=== PATIENT | male | born 1965 | race African-American/Black ===

== ENCOUNTER 2019-09-08 18:47 | Inpatient (IN) | payer MEDICAID ==
[~2019-09-08] VITALS: Ht 182.9 cm; Wt 107.0 kg
[2019-09-08] MEDS ORDERED: SODIUM CHLORIDE 0.9% 1,000 ML IV ONE (19:27)
[2019-09-08] MEDS ORDERED: HYDRALAZINE 20MG/ML VIAL IV ONE (19:45)
[2019-09-08 20:17] LABS: MEAN CORPUSCULAR HEMOGLOBIN 30.1 pg (28.0-32.0); MEAN CORPUSCULAR VOLUME 89.1 fL (80.0-94.0); MEAN PLATELET VOLUME 8.4 fl (7.4-10.4); PLATELET 287 x1000/uL (130-400); RED CELL DISTRIBUTION WIDTH 19.2 % (11.6-14.6)
[2019-09-08 20:18] LABS: CHLORIDE 116 mEq/L (98-107)
[2019-09-08 20:22] LABS: ETHANOL BLOOD < 10 mg/dL
[2019-09-08 20:28] LABS: HEMATOCRIT. 20.5 % (42.0-52.0); HEMOGLOBIN. 6.9 g/dL (14.0-18.0)
[2019-09-08 20:30] LABS: INR 1.2; PARTIAL THROMBOPLASTIN TIME 35.3 sec (23.4-31.0); PROTHROMBIN TIME 12.4 sec (9.6-11.0)
[2019-09-08] MEDS ORDERED: LEVETIRACETAM 500MG PREMIX 100 ML IV ONE (20:45)
[2019-09-08] MEDS ORDERED: NICARDIPINE 100 MG in SODIUM CHLORIDE 0.9% 60 ML IV STA (20:57)
[2019-09-08 20:59] LABS: CLARITY URINE CLEAR (CLEAR); COLOR URINE YELLOW (YELLOW); KETONES URINE NEGATIVE (NEGATIVE); LEUKOCYTE ESTERASE URINE NEGATIVE (NEGATIVE); NITRITE URINE NEGATIVE (NEGATIVE); OCCULT BLOOD URINE 2+ (NEGATIVE); PROTEIN URINE 2+ (NEGATIVE); SPECIFIC GRAVITY URINE 1.009 (1.005-1.030)
[2019-09-08] MEDS ORDERED: DEXAMETHASONE 10 MG/ML VIAL IV ONE (21:00)
[2019-09-08] MEDS ORDERED: MANNITOL 12.5G (25%) VIAL 50ML IV ONE (21:00)
[2019-09-08] MEDS ORDERED: FUROSEMIDE 40MG/4ML VIAL IVP ONE (21:00)
[2019-09-08 21:06] LABS: *AMPHETAMINES SCREEN URINE NEGATIVE (NEGATIVE); *BARBITURATES SCREEN URINE NEGATIVE (NEGATIVE); *COCAINE SCREEN URINE NEGATIVE (NEGATIVE)
[2019-09-08 21:06] LABS: PLATELET ESTIMATE NORMAL
[2019-09-08 21:07] LABS: *BENZODIAZEPINES SCREEN URINE NEGATIVE (NEGATIVE); METHADONE URINE SCREEN NEGATIVE (NEGATIVE); OPIATES URINE SCREEN PRESUMTIVE POSITIVE (NEGATIVE); PHENCYCLIDINE URINE SCREEN NEGATIVE (NEGATIVE)
[2019-09-08 21:08] LABS: CANNABINOID URINE SCREEN NEGATIVE (NEGATIVE)
[2019-09-08] MEDS ORDERED: AZITHROMYCIN 500 MG in DEXT 5% WATER 250 ML IV ONE (21:15)
[2019-09-08] MEDS ORDERED: CEFTRIAXONE 1 G PREMIX 50 ML IV ONE (21:15)
[2019-09-08] MEDS ORDERED: MANNITOL 12.5G (25%) VIAL 50ML IV NR (21:43)
[2019-09-08] MEDS ORDERED: BACITRACIN 15GM TUBE TOP ONE (22:02)
[2019-09-08] MEDS ORDERED: THROMBIN (BOVINE) 5000 UNITS/VIAL TOP ONE (22:03)
[2019-09-08] MEDS ORDERED: NORMAL SALINE 0.9% 10 ML SYR ONE (22:03)
[2019-09-08] MEDS ORDERED: BACITRACIN 50,000 UNITS/VIAL ONE (22:04)
[2019-09-08] MEDS ORDERED: LIDOCAINE HCL/EPINEPHRINE 1%-EPI 1:100,000 20 ML VIAL ONE (22:04)
[2019-09-08] MEDS ORDERED: PROPOFOL 200MG/20ML VIAL IV ONE ×2 (22:24→22:57)
[2019-09-08] MEDS ORDERED: FENTANYL CITRATE/PF 50MCG/ML 2ML VIAL ONE (22:24)
[2019-09-08] MEDS ORDERED: MIDAZOLAM HCL 2 MG/2 ML VIAL ONE (22:24)
[2019-09-08] MEDS ORDERED: DEXAMETHASONE 4MG/ML 1ML VIAL ONE (22:24)
[2019-09-08] MEDS ORDERED: SUCCINYLCHOLINE CHLORIDE 200MG/10ML IV ONE (22:24)
[2019-09-08] MEDS ORDERED: CEFAZOLIN SODIUM 1000MG/VIAL ONE (22:24)
[2019-09-08] MEDS ORDERED: NEOSTIGMINE METHYLSULFATE 1MG/ML 10 ML VIAL ONE (22:24)
[2019-09-08] MEDS ORDERED: SODIUM CHLORIDE 0.9% 10ML VIAL ONE (22:24)
[2019-09-08] MEDS ORDERED: GLYCOPYRROLATE 0.2 MG/ML 2ML VIAL ONE (22:24)
[2019-09-08] MEDS ORDERED: ROCURONIUM BROMIDE 10MG/ML VIAL 5ML IV ONE ×2 (22:24→23:01)
[2019-09-08] MEDS ORDERED: EPHEDRINE SULFATE 50MG/ML VIAL ONE (22:24)
[2019-09-08] MEDS ORDERED: ONDANSETRON HCL 4MG/2ML INJ ONE (22:25)
[2019-09-08] MEDS ORDERED: PHENYLEPHRINE HCL 10 MG/ML 1ML (IV VIAL) IV ONE (22:25)
[2019-09-08] MEDS ORDERED: METOCLOPRAMIDE HCL 10MG/2ML VIAL ONE (22:25)
[2019-09-08] MEDS ORDERED: LEVETIRACETAM 500MG PREMIX 100 ML IV NR (22:30)
[2019-09-08] MEDS ORDERED: NICARDIPINE 100 MG in SODIUM CHLORIDE 0.9% 60 ML IV PRN (22:30)
[2019-09-08] MEDS ORDERED: HYDROMORPHONE HCL/PF 2MG/ML CPJ IV PRN (23:30)
[2019-09-08] MEDS ORDERED: ONDANSETRON HCL 4MG/2ML INJ IV PRN (23:30)
[2019-09-08] MEDS ORDERED: SODIUM CHLORIDE 0.9% 1,000 ML IV NR (23:30)
[2019-09-09] VITALS (135 sets, daily range): BP systolic 95–150; BP diastolic 41–79
[2019-09-09 00:19] LABS: BG BASE EXCESS -4.9 mmol/L (-2.0-2.0); BG DEOXYHEMOGLOBIN 0.9 % (0.0-5.0); BG FRACTION INSPIRED OXYGEN 60; BG HCO3 ACT 21.6 mmol/L (22.0-26.0); BG METHEMOGLOBIN 0.4 % (0.0-1.5); BG OXYGEN SATURATION 99.1 % (92.0-98.5); BG OXYHEMOGLOBIN 98.7 % (94.0-97.0); BG PCO2 46.5 mmHg (35.0-45.0); BG PH 7.285 (7.350-7.450); BG PO2 267.4 mmHg (75.0-100.0); BG SAMPLE SITE A-LINE; BG TIDAL VOLUME(mL) 600 mL; BG TOTAL HEMOGLOBIN 9.9 g/dL (12.0-18.0); BG VENT MODE VENT - A/C; BG VENT RATE 14 set
[2019-09-09] MEDS ORDERED: LABETALOL 5MG/ML SYR 20 MG/4 ML SYRINGE IV NR (00:45)
[2019-09-09] MEDS ORDERED: LABETALOL 5MG/ML SYR 20 MG/4 ML SYRINGE IV ONE (00:49)
[2019-09-09] MEDS: MORPHINE SULFATE 2 MG/ML CPJ (NOT FOR IM USE) IV PRN ×2 (01:29→01:56)
[2019-09-09] MEDS ORDERED: PHENYTOIN SODIUM 500 MG in SODIUM CHLORIDE 0.9% 50 ML IV NR ×2 (01:45→05:00)
[2019-09-09] MEDS: DEXT 5%/LACTATED RINGERS 1,000 ML IV SCH ×2 (03:59→14:36)
[2019-09-09] MEDS ORDERED: AZITHROMYCIN 500 MG in DEXT 5% WATER 250 ML IV NR (05:00)
[2019-09-09] MEDS: NICARDIPINE 100 MG in SODIUM CHLORIDE 0.9% 60 ML IV PRN ×3 (05:51→23:22)
[2019-09-09] MEDS: CEFAZOLIN 1000MG PREMIX 50 ML IV SCH ×3 (06:38→21:24)
[2019-09-09 08:39] LABS: BG BASE EXCESS -6.6 mmol/L (-2.0-2.0); BG CARBOXYHEMOGLOBIN 0.2 % (0.5-1.5); BG DEOXYHEMOGLOBIN 0.7 % (0.0-5.0); BG FRACTION INSPIRED OXYGEN 50; BG HCO3 ACT 18.4 mmol/L (22.0-26.0); BG METHEMOGLOBIN 0.5 % (0.0-1.5); BG OXYGEN SATURATION 99.3 % (92.0-98.5); BG OXYHEMOGLOBIN 98.6 % (94.0-97.0); BG PCO2 34.5 mmHg (35.0-45.0); BG PH 7.345 (7.350-7.450); BG SAMPLE SITE A-LINE; BG TIDAL VOLUME(mL) 600 mL; BG TOTAL HEMOGLOBIN 9.6 g/dL (12.0-18.0); BG VENT MODE VENT - A/C; BG VENT RATE 16 set
[2019-09-09] MEDS: PANTOPRAZOLE SODIUM 40 MG/VIAL IV SCH (09:00)
[2019-09-09] MEDS ORDERED: LEVETIRACETAM 1000MG/100ML 100 ML IV SCH (09:00)
[2019-09-09] MEDS ORDERED: LEVETIRACETAM 500MG PREMIX 100 ML IV SCH ×2 (09:00)
[2019-09-09] MEDS: PROPOFOL 10MG/ML 100ML 100 ML IV PRN ×4 (09:13→21:23)
[2019-09-09] MEDS: LEVETIRACETAM 1,000 MG in SODIUM CHLORIDE 0.9% 100 ML IV SCH ×2 (09:13→21:24)
[2019-09-09 09:36] LABS: HEMATOCRIT. 26.7 % (42.0-52.0); MEAN CORPUSCULAR HEMOGLOBIN 28.9 pg (28.0-32.0); MEAN CORPUSCULAR VOLUME 87.1 fL (80.0-94.0); MEAN PLATELET VOLUME 8.9 fl (7.4-10.4); PLATELET 295 x1000/uL (130-400); RED BLOOD CELL COUNT 3.07 mill/uL (4.7-6.1); RED CELL DISTRIBUTION WIDTH 18.1 % (11.6-14.6)
[2019-09-09 09:46] LABS: HEMOGLOBIN. 8.9 g/dL (14.0-18.0)
[2019-09-09 10:29] LABS: PLATELET ESTIMATE NORMAL
[2019-09-09] MEDS: METRONIDAZOLE 500 MG PREMIX 100 ML IV SCH ×2 (10:50→17:32)
[2019-09-09] MEDS: FENTANYL CITRATE/PF 1,000 MCG in SODIUM CHLORIDE 0.9% 80 ML IV PRN ×2 (11:39→17:31)
[2019-09-09] MEDS ORDERED: POTASSIUM CHLORIDE INJ 40 MEQ in DEXT 5% WATER 250 ML IV SCH (12:00)
[2019-09-09] MEDS ORDERED: IPRATROPIUM/ALBUTEROL 0.5-3(2.5)MG/3ML NEB HHN PRN (14:30)
[2019-09-09] MEDS: PHENYTOIN SODIUM 100MG/2ML VIAL IV SCH ×2 (14:36→21:24)
[2019-09-09] MEDS: IPRATROPIUM/ALBUTEROL 0.5-3(2.5)MG/3ML NEB HHN SCH (20:10)
[2019-09-10] VITALS (158 sets, daily range): BP systolic 81–159; BP diastolic 42–71
[2019-09-10] MEDS: IPRATROPIUM/ALBUTEROL 0.5-3(2.5)MG/3ML NEB HHN SCH ×4 (00:30→21:00)
[2019-09-10] MEDS: FENTANYL CITRATE/PF 1,000 MCG in SODIUM CHLORIDE 0.9% 80 ML IV PRN ×3 (00:46→17:59)
[2019-09-10] MEDS: METRONIDAZOLE 500 MG PREMIX 100 ML IV SCH ×3 (01:22→17:59)
[2019-09-10] MEDS: PROPOFOL 10MG/ML 100ML 100 ML IV PRN ×5 (03:04→21:50)
[2019-09-10] MEDS: PHENYTOIN SODIUM 100MG/2ML VIAL IV SCH ×3 (05:09→21:18)
[2019-09-10 05:58] LABS: CREATINE KINASE MB FRACTION 1.3 ng/mL (0.5-3.6)
[2019-09-10 09:13] LABS: HEMOGLOBIN. 8.9 g/dL (14.0-18.0); MEAN CORPUSCULAR HEMOGLOBIN 29.4 pg (28.0-32.0); MEAN PLATELET VOLUME 9.1 fl (7.4-10.4); PLATELET 293 x1000/uL (130-400); RED BLOOD CELL COUNT 3.03 mill/uL (4.7-6.1); RED CELL DISTRIBUTION WIDTH 18.3 % (11.6-14.6)
[2019-09-10] MEDS: LEVETIRACETAM 1,000 MG in SODIUM CHLORIDE 0.9% 100 ML IV SCH ×2 (09:24→21:46)
[2019-09-10] MEDS: CEFEPIME 1,000 MG in DEXTROSE 5% WATER 50 ML IV SCH ×2 (09:24→20:26)
[2019-09-10] MEDS: PANTOPRAZOLE SODIUM 40 MG/VIAL IV SCH (09:25)
[2019-09-10 09:58] LABS: BG BASE EXCESS -7.7 mmol/L (-2.0-2.0); BG CARBOXYHEMOGLOBIN 0.6 % (0.5-1.5); BG DEOXYHEMOGLOBIN 1.2 % (0.0-5.0); BG FRACTION INSPIRED OXYGEN 40; BG HCO3 ACT 17.5 mmol/L (22.0-26.0); BG METHEMOGLOBIN 0.6 % (0.0-1.5); BG OXYGEN SATURATION 98.8 % (92.0-98.5); BG OXYHEMOGLOBIN 97.6 % (94.0-97.0); BG PCO2 34.4 mmHg (35.0-45.0); BG PH 7.325 (7.350-7.450); BG PO2 165.3 mmHg (75.0-100.0); BG SAMPLE SITE RIGHT RADIAL; BG TIDAL VOLUME(mL) 600 mL; BG TOTAL HEMOGLOBIN 8.4 g/dL (12.0-18.0); BG VENT MODE VENT - A/C; BG VENT RATE 16 set
[2019-09-10] MEDS: NICARDIPINE 100 MG in SODIUM CHLORIDE 0.9% 60 ML IV PRN ×2 (10:30→18:39)
[2019-09-10 10:43] LABS: NUCLEATED RED BLOOD CELLS 1 /100 WBC; PLATELET ESTIMATE NORMAL
[2019-09-10] MEDS ORDERED: SODIUM POLYSTYRENE SULFONATE 15 G/60 ML BOT PO NR (12:00)
[2019-09-10] MEDS ORDERED: LIDOCAINE HCL 1% 20ML VIAL (Pyxis) INJ ONE (12:55)
[2019-09-10] MEDS: DEXAMETHASONE 4MG/ML 1ML VIAL IV SCH ×3 (13:02→23:15)
[2019-09-10] MEDS: MORPHINE SULFATE 4 MG/ML CPJ (NOT FOR IM USE) IV PRN (13:02)
[2019-09-10] MEDS: SODIUM BICARBONATE 100 MEQ in SODIUM CHLORIDE 0.45% 1,000 ML IV SCH (13:03)
[2019-09-10 13:30] LABS: CREATINE KINASE 182 IU/L (39-308)
[2019-09-11] VITALS (101 sets, daily range): BP systolic 86–176; BP diastolic 42–83
[2019-09-11] MEDS: METRONIDAZOLE 500 MG PREMIX 100 ML IV SCH ×3 (01:39→18:13)
[2019-09-11] MEDS: NICARDIPINE 100 MG in SODIUM CHLORIDE 0.9% 60 ML IV PRN ×4 (01:40→23:21)
[2019-09-11] MEDS: PROPOFOL 10MG/ML 100ML 100 ML IV PRN ×2 (03:08→06:45)
[2019-09-11] MEDS: DEXAMETHASONE 4MG/ML 1ML VIAL IV SCH ×2 (05:00→11:52)
[2019-09-11] MEDS: FENTANYL CITRATE/PF 1,000 MCG in SODIUM CHLORIDE 0.9% 80 ML IV PRN (05:00)
[2019-09-11] MEDS: PHENYTOIN SODIUM 100MG/2ML VIAL IV SCH ×3 (05:00→21:14)
[2019-09-11 05:37] LABS: HEMATOCRIT. 24.4 % (42.0-52.0); MEAN CORPUSCULAR HEMOGLOBIN 28.8 pg (28.0-32.0); MEAN PLATELET VOLUME 8.6 fl (7.4-10.4); PLATELET 257 x1000/uL (130-400); RED BLOOD CELL COUNT 2.77 mill/uL (4.7-6.1); RED CELL DISTRIBUTION WIDTH 17.8 % (11.6-14.6)
[2019-09-11 07:47] LABS: NUCLEATED RED BLOOD CELLS 1 /100 WBC
[2019-09-11 07:48] LABS: PLATELET ESTIMATE NORMAL
[2019-09-11] MEDS: LEVETIRACETAM 1,000 MG in SODIUM CHLORIDE 0.9% 100 ML IV SCH ×2 (08:40→23:28)
[2019-09-11] MEDS: CEFEPIME 1,000 MG in DEXTROSE 5% WATER 50 ML IV SCH ×2 (08:50→20:33)
[2019-09-11] MEDS: PANTOPRAZOLE SODIUM 40 MG/VIAL IV SCH (08:55)
[2019-09-11] MEDS: IPRATROPIUM/ALBUTEROL 0.5-3(2.5)MG/3ML NEB HHN SCH ×3 (09:10→20:07)
[2019-09-11 09:42] LABS: BG BASE EXCESS -8.4 mmol/L (-2.0-2.0); BG DEOXYHEMOGLOBIN 1.4 % (0.0-5.0); BG FRACTION INSPIRED OXYGEN 40; BG HCO3 ACT 16.6 mmol/L (22.0-26.0); BG METHEMOGLOBIN 0.3 % (0.0-1.5); BG OXYGEN SATURATION 98.6 % (92.0-98.5); BG OXYHEMOGLOBIN 98.3 % (94.0-97.0); BG PCO2 31.8 mmHg (35.0-45.0); BG PH 7.335 (7.350-7.450); BG PO2 135.4 mmHg (75.0-100.0); BG SAMPLE SITE A-LINE; BG TIDAL VOLUME(mL) 600 mL; BG TOTAL HEMOGLOBIN 8.2 g/dL (12.0-18.0); BG VENT MODE VENT - A/C; BG VENT RATE 16 set
[2019-09-11] MEDS: SODIUM BICARBONATE 100 MEQ in SODIUM CHLORIDE 0.45% 1,000 ML IV SCH ×2 (10:33→23:28)
[2019-09-11] MEDS ORDERED: HYDRALAZINE HCL 100MG TABLET PO NR (11:45)
[2019-09-11] MEDS: MORPHINE SULFATE 4 MG/ML CPJ (NOT FOR IM USE) IV PRN ×4 (11:53→22:20)
[2019-09-11] MEDS: AMLODIPINE 10MG TABLET PO SCH (11:54)
[2019-09-11 12:24] LABS: BG CARBOXYHEMOGLOBIN 0.5 % (0.5-1.5); BG DEOXYHEMOGLOBIN 2.5 % (0.0-5.0); BG FRACTION INSPIRED OXYGEN 40; BG METHEMOGLOBIN 0.4 % (0.0-1.5); BG OXYGEN SATURATION 97.5 % (92.0-98.5); BG OXYHEMOGLOBIN 96.6 % (94.0-97.0); BG PH 7.341 (7.350-7.450); BG PO2 103.1 mmHg (75.0-100.0); BG PRESSURE SUPPORT 8; BG SAMPLE SITE A-LINE; BG TOTAL HEMOGLOBIN 8.6 g/dL (12.0-18.0); BG VENT MODE VENT - CPAP
[2019-09-11] MEDS: HYDRALAZINE HCL 100MG TABLET PO SCH (21:15)
[2019-09-12] VITALS (168 sets, daily range): BP systolic 112–168; BP diastolic 40–86
[2019-09-12] MEDS: METRONIDAZOLE 500 MG PREMIX 100 ML IV SCH ×3 (01:03→17:34)
[2019-09-12] MEDS: MORPHINE SULFATE 4 MG/ML CPJ (NOT FOR IM USE) IV PRN ×2 (01:10→05:46)
[2019-09-12] MEDS: IPRATROPIUM/ALBUTEROL 0.5-3(2.5)MG/3ML NEB HHN SCH ×2 (02:20→20:39)
[2019-09-12 05:35] LABS: HEMATOCRIT. 22.7 % (42.0-52.0); HEMOGLOBIN. 7.6 g/dL (14.0-18.0); MEAN CORPUSCULAR HEMOGLOBIN 29.4 pg (28.0-32.0); MEAN CORPUSCULAR VOLUME 87.4 fL (80.0-94.0); MEAN PLATELET VOLUME 8.7 fl (7.4-10.4); PLATELET 231 x1000/uL (130-400); RED BLOOD CELL COUNT 2.59 mill/uL (4.7-6.1); RED CELL DISTRIBUTION WIDTH 16.9 % (11.6-14.6)
[2019-09-12] MEDS: PHENYTOIN SODIUM 100MG/2ML VIAL IV SCH ×3 (05:46→22:18)
[2019-09-12] MEDS: NICARDIPINE 100 MG in SODIUM CHLORIDE 0.9% 60 ML IV PRN ×2 (05:46→14:39)
[2019-09-12] MEDS: DEXAMETHASONE 4MG/ML 1ML VIAL IV SCH ×4 (07:07→23:06)
[2019-09-12] MEDS: CEFEPIME 1,000 MG in DEXTROSE 5% WATER 50 ML IV SCH ×2 (09:00→20:39)
[2019-09-12] MEDS: PANTOPRAZOLE SODIUM 40 MG/VIAL IV SCH (09:02)
[2019-09-12] MEDS: AMLODIPINE 10MG TABLET PO SCH (09:02)
[2019-09-12] MEDS: HYDRALAZINE HCL 100MG TABLET PO SCH ×2 (09:02→20:40)
[2019-09-12] MEDS: LEVETIRACETAM 1,000 MG in SODIUM CHLORIDE 0.9% 100 ML IV SCH ×2 (09:33→21:30)
[2019-09-12 09:35] LABS: INR 1.2
[2019-09-12] MEDS ORDERED: VECURONIUM BROMIDE 10 MG/VIAL IV ONE (10:02)
[2019-09-12] MEDS ORDERED: ETOMIDATE 2MG/ML 10ML VIAL IV ONE (10:02)
[2019-09-12 10:46] LABS: BG BASE EXCESS -9.6 mmol/L (-2.0-2.0); BG CARBOXYHEMOGLOBIN 0.3 % (0.5-1.5); BG DEOXYHEMOGLOBIN 0.8 % (0.0-5.0); BG FRACTION INSPIRED OXYGEN 60; BG HCO3 ACT 17.6 mmol/L (22.0-26.0); BG METHEMOGLOBIN 0.4 % (0.0-1.5); BG OXYGEN SATURATION 99.2 % (92.0-98.5); BG OXYHEMOGLOBIN 98.5 % (94.0-97.0); BG PCO2 44.6 mmHg (35.0-45.0); BG PH 7.215 (7.350-7.450); BG PO2 249.7 mmHg (75.0-100.0); BG SAMPLE SITE A-LINE; BG TIDAL VOLUME(mL) 500 mL; BG TOTAL HEMOGLOBIN 8.9 g/dL (12.0-18.0); BG VENT MODE VENT - A/C; BG VENT RATE 16 set
[2019-09-12] MEDS: PROPOFOL 10MG/ML 100ML 100 ML IV PRN ×3 (12:51→23:06)
[2019-09-12 13:09] LABS: PLATELET ESTIMATE NORMAL
[2019-09-12] MEDS: SODIUM BICARBONATE 100 MEQ in SODIUM CHLORIDE 0.45% 1,000 ML IV SCH (20:55)
[2019-09-13] VITALS (95 sets, daily range): BP systolic 115–163; BP diastolic 41–78
[2019-09-13] MEDS: METRONIDAZOLE 500 MG PREMIX 100 ML IV SCH ×3 (01:21→17:43)
[2019-09-13] MEDS: IPRATROPIUM/ALBUTEROL 0.5-3(2.5)MG/3ML NEB HHN SCH ×5 (03:25→20:59)
[2019-09-13] MEDS: NICARDIPINE 100 MG in SODIUM CHLORIDE 0.9% 60 ML IV PRN ×2 (04:42→16:02)
[2019-09-13 05:14] LABS: HEMATOCRIT. 23.1 % (42.0-52.0); HEMOGLOBIN. 7.7 g/dL (14.0-18.0); MEAN CORPUSCULAR HEMOGLOBIN 29.1 pg (28.0-32.0); MEAN CORPUSCULAR VOLUME 87.3 fL (80.0-94.0); MEAN PLATELET VOLUME 8.7 fl (7.4-10.4); PLATELET 242 x1000/uL (130-400); RED BLOOD CELL COUNT 2.65 mill/uL (4.7-6.1); RED CELL DISTRIBUTION WIDTH 16.4 % (11.6-14.6)
[2019-09-13] MEDS: PHENYTOIN SODIUM 100MG/2ML VIAL IV SCH ×3 (06:06→22:03)
[2019-09-13] MEDS: DEXAMETHASONE 4MG/ML 1ML VIAL IV SCH (06:06)
[2019-09-13] MEDS: LEVETIRACETAM 1,000 MG in SODIUM CHLORIDE 0.9% 100 ML IV SCH ×2 (08:19→21:37)
[2019-09-13] MEDS: CEFEPIME 1,000 MG in DEXTROSE 5% WATER 50 ML IV SCH ×2 (08:48→21:31)
[2019-09-13] MEDS: AMLODIPINE 10MG TABLET PO SCH (08:49)
[2019-09-13] MEDS: HYDRALAZINE HCL 100MG TABLET PO SCH ×3 (08:49→22:19)
[2019-09-13] MEDS: PANTOPRAZOLE SODIUM 40 MG/VIAL IV SCH (08:49)
[2019-09-13] MEDS: PROPOFOL 10MG/ML 100ML 100 ML IV PRN (08:55)
[2019-09-13 10:09] LABS: BG BASE EXCESS -5.7 mmol/L (-2.0-2.0); BG CARBOXYHEMOGLOBIN 0.2 % (0.5-1.5); BG DEOXYHEMOGLOBIN 1.1 % (0.0-5.0); BG FRACTION INSPIRED OXYGEN 40; BG HCO3 ACT 18.4 mmol/L (22.0-26.0); BG METHEMOGLOBIN 0.3 % (0.0-1.5); BG OXYGEN SATURATION 98.9 % (92.0-98.5); BG OXYHEMOGLOBIN 98.4 % (94.0-97.0); BG PCO2 30.2 mmHg (35.0-45.0); BG PH 7.402 (7.350-7.450); BG PO2 184.2 mmHg (75.0-100.0); BG SAMPLE SITE RIGHT RADIAL; BG TIDAL VOLUME(mL) 500 mL; BG TOTAL HEMOGLOBIN 7.8 g/dL (12.0-18.0); BG VENT MODE VENT - A/C; BG VENT RATE 20 set
[2019-09-13] MEDS: CITRIC ACID/SODIUM CITRATE SOLN 30ML UDC PO SCH ×3 (10:38→17:43)
[2019-09-13 13:10] LABS: NUCLEATED RED BLOOD CELLS 1 /100 WBC; PLATELET ESTIMATE NORMAL
[2019-09-13] MEDS: CLONIDINE 0.1MG TABLET PO SCH ×2 (13:35→22:18)
[2019-09-13] MEDS: SODIUM BICARBONATE 100 MEQ in SODIUM CHLORIDE 0.45% 1,000 ML IV SCH (16:19)
[2019-09-13] MEDS ORDERED: LORAZEPAM 2MG/ML CPJ IV PRN (19:30)
[2019-09-14] VITALS (87 sets, daily range): BP systolic 118–149; BP diastolic 41–65
[2019-09-14] MEDS: NICARDIPINE 100 MG in SODIUM CHLORIDE 0.9% 60 ML IV PRN ×3 (00:26→18:08)
[2019-09-14] MEDS: METRONIDAZOLE 500 MG PREMIX 100 ML IV SCH (01:02)
[2019-09-14] MEDS: IPRATROPIUM/ALBUTEROL 0.5-3(2.5)MG/3ML NEB HHN SCH ×4 (01:28→19:40)
[2019-09-14 03:42] LABS: PHOSPHORUS 5.6 mg/dL (2.5-4.9)
[2019-09-14 03:54] LABS: HEMATOCRIT. 21.1 % (42.0-52.0); MEAN CORPUSCULAR HEMOGLOBIN 28.8 pg (28.0-32.0); MEAN PLATELET VOLUME 8.8 fl (7.4-10.4); PLATELET 207 x1000/uL (130-400); RED BLOOD CELL COUNT 2.43 mill/uL (4.7-6.1); RED CELL DISTRIBUTION WIDTH 16.2 % (11.6-14.6)
[2019-09-14] MEDS: HYDRALAZINE HCL 100MG TABLET PO SCH ×3 (05:32→21:05)
[2019-09-14] MEDS: CLONIDINE 0.1MG TABLET PO SCH ×3 (05:32→21:05)
[2019-09-14] MEDS ORDERED: BACITRACIN 15GM TUBE TOP ONE (06:43)
[2019-09-14] MEDS ORDERED: THROMBIN (BOVINE) 5000 UNITS/VIAL TOP ONE ×2 (06:43→06:44)
[2019-09-14] MEDS ORDERED: NORMAL SALINE 0.9% 10 ML SYR ONE (06:43)
[2019-09-14] MEDS ORDERED: BACITRACIN 50,000 UNITS/VIAL ONE (06:44)
[2019-09-14] MEDS ORDERED: LIDOCAINE HCL/EPINEPHRINE 1%-EPI 1:100,000 20 ML VIAL ONE (06:44)
[2019-09-14 07:11] LABS: PLATELET ESTIMATE NORMAL
[2019-09-14] MEDS: PHENYTOIN SODIUM 100MG/2ML VIAL IV SCH ×3 (07:25→21:05)
[2019-09-14] MEDS ORDERED: VECURONIUM BROMIDE 10 MG/VIAL IV ONE (08:22)
[2019-09-14] MEDS ORDERED: METOPROLOL TARTRATE 5MG/5ML VIAL IV ONE (08:23)
[2019-09-14] MEDS ORDERED: HYDRALAZINE 20MG/ML VIAL ONE (08:48)
[2019-09-14] MEDS: CITRIC ACID/SODIUM CITRATE SOLN 30ML UDC PO SCH ×3 (09:00→16:46)
[2019-09-14] MEDS ORDERED: NICARDIPINE 40MG/200ML PREMIX 200 ML IV ONE (09:06)
[2019-09-14] MEDS: CEFEPIME 1,000 MG in DEXTROSE 5% WATER 50 ML IV SCH ×2 (10:36→20:49)
[2019-09-14] MEDS: PANTOPRAZOLE SODIUM 40 MG/VIAL IV SCH (10:36)
[2019-09-14] MEDS: LEVETIRACETAM 1,000 MG in SODIUM CHLORIDE 0.9% 100 ML IV SCH ×2 (10:36→21:32)
[2019-09-14] MEDS: DEXTROSE 5% WATER 1,000 ML IV SCH (10:37)
[2019-09-14] MEDS: PROPOFOL 10MG/ML 100ML 100 ML IV PRN ×3 (10:39→23:57)
[2019-09-14] MEDS: AMLODIPINE 10MG TABLET PO SCH (12:26)
[2019-09-14] MEDS: MORPHINE SULFATE 4 MG/ML CPJ (NOT FOR IM USE) IV PRN ×4 (12:27→23:52)
[2019-09-14 14:12] LABS: BG BASE EXCESS -1.9 mmol/L (-2.0-2.0); BG CARBOXYHEMOGLOBIN 1.1 % (0.5-1.5); BG DEOXYHEMOGLOBIN 2.2 % (0.0-5.0); BG FRACTION INSPIRED OXYGEN 40; BG HCO3 ACT 22.7 mmol/L (22.0-26.0); BG METHEMOGLOBIN 0.3 % (0.0-1.5); BG OXYGEN SATURATION 97.8 % (92.0-98.5); BG OXYHEMOGLOBIN 96.4 % (94.0-97.0); BG PCO2 37.6 mmHg (35.0-45.0); BG PH 7.398 (7.350-7.450); BG PO2 134.1 mmHg (75.0-100.0); BG SAMPLE SITE RIGHT RADIAL; BG TIDAL VOLUME(mL) 500 mL; BG TOTAL HEMOGLOBIN 7.8 g/dL (12.0-18.0); BG VENT MODE VENT - A/C; BG VENT RATE 18 set
[2019-09-14 14:57] LABS: INR 1.2
[2019-09-14 15:01] LABS: HEMATOCRIT. 24.1 % (42.0-52.0); MEAN CORPUSCULAR HEMOGLOBIN 29.3 pg (28.0-32.0); MEAN CORPUSCULAR VOLUME 88.1 fL (80.0-94.0); MEAN PLATELET VOLUME 8.7 fl (7.4-10.4); PLATELET 209 x1000/uL (130-400); RED BLOOD CELL COUNT 2.74 mill/uL (4.7-6.1); RED CELL DISTRIBUTION WIDTH 15.7 % (11.6-14.6); TOTAL IRON BINDING CAPACITY 128 ug/dL (250-450)
[2019-09-14 18:14] LABS: NUCLEATED RED BLOOD CELLS 4 /100 WBC; PLATELET ESTIMATE NORMAL
[2019-09-15] VITALS (91 sets, daily range): BP systolic 109–150; BP diastolic 42–67
[2019-09-15] MEDS: NICARDIPINE 100 MG in SODIUM CHLORIDE 0.9% 60 ML IV PRN ×4 (01:21→15:39)
[2019-09-15] MEDS: IPRATROPIUM/ALBUTEROL 0.5-3(2.5)MG/3ML NEB HHN SCH ×4 (01:50→21:09)
[2019-09-15] MEDS: DEXTROSE 5% WATER 1,000 ML IV SCH ×2 (03:51→17:35)
[2019-09-15] MEDS: PROPOFOL 10MG/ML 100ML 100 ML IV PRN ×4 (04:43→19:33)
[2019-09-15] MEDS: MORPHINE SULFATE 4 MG/ML CPJ (NOT FOR IM USE) IV PRN (04:57)
[2019-09-15 05:08] LABS: HEMOGLOBIN. 7.9 g/dL (14.0-18.0); MEAN CORPUSCULAR HEMOGLOBIN 28.8 pg (28.0-32.0); MEAN CORPUSCULAR VOLUME 87.9 fL (80.0-94.0); MEAN PLATELET VOLUME 8.8 fl (7.4-10.4); PLATELET 201 x1000/uL (130-400); RED BLOOD CELL COUNT 2.73 mill/uL (4.7-6.1); RED CELL DISTRIBUTION WIDTH 15.8 % (11.6-14.6)
[2019-09-15] MEDS: PHENYTOIN SODIUM 100MG/2ML VIAL IV SCH ×3 (05:41→21:05)
[2019-09-15] MEDS: CLONIDINE 0.1MG TABLET PO SCH (05:41)
[2019-09-15] MEDS: HYDRALAZINE HCL 100MG TABLET PO SCH ×3 (05:41→21:05)
[2019-09-15] MEDS: PANTOPRAZOLE SODIUM 40 MG/VIAL IV SCH (08:11)
[2019-09-15] MEDS: CITRIC ACID/SODIUM CITRATE SOLN 30ML UDC PO SCH ×3 (08:11→17:35)
[2019-09-15] MEDS: AMLODIPINE 10MG TABLET PO SCH (08:12)
[2019-09-15] MEDS: LEVETIRACETAM 1,000 MG in SODIUM CHLORIDE 0.9% 100 ML IV SCH ×2 (08:12→21:05)
[2019-09-15 09:34] LABS: PLATELET ESTIMATE NORMAL
[2019-09-15 10:29] LABS: BG BASE EXCESS -5.1 mmol/L (-2.0-2.0); BG CARBOXYHEMOGLOBIN 0.4 % (0.5-1.5); BG FRACTION INSPIRED OXYGEN 40; BG HCO3 ACT 18.8 mmol/L (22.0-26.0); BG METHEMOGLOBIN 0.6 % (0.0-1.5); BG PCO2 30.4 mmHg (35.0-45.0); BG SAMPLE SITE A-LINE; BG TIDAL VOLUME(mL) 500 mL; BG TOTAL HEMOGLOBIN 8.2 g/dL (12.0-18.0); BG VENT MODE VENT - A/C; BG VENT RATE 18 set
[2019-09-15] MEDS: CLONIDINE 0.2MG TABLET PO SCH ×2 (14:09→21:05)
[2019-09-15] MEDS: NAFCILLIN SODIUM 2,000 MG in SODIUM CHLORIDE 0.9% 100 ML IV SCH ×3 (15:48→23:11)
[2019-09-16] VITALS (95 sets, daily range): BP systolic 85–156; BP diastolic 39–69
[2019-09-16] MEDS: IPRATROPIUM/ALBUTEROL 0.5-3(2.5)MG/3ML NEB HHN SCH ×4 (01:28→21:07)
[2019-09-16] MEDS: NICARDIPINE 100 MG in SODIUM CHLORIDE 0.9% 60 ML IV PRN (01:28)
[2019-09-16] MEDS: PROPOFOL 10MG/ML 100ML 100 ML IV PRN ×4 (01:28→19:50)
[2019-09-16] MEDS: NAFCILLIN SODIUM 2,000 MG in SODIUM CHLORIDE 0.9% 100 ML IV SCH ×5 (03:19→19:48)
[2019-09-16] MEDS: CLONIDINE 0.2MG TABLET PO SCH (05:36)
[2019-09-16] MEDS: HYDRALAZINE HCL 100MG TABLET PO SCH ×3 (05:36→21:10)
[2019-09-16] MEDS: PHENYTOIN SODIUM 100MG/2ML VIAL IV SCH ×3 (05:36→21:09)
[2019-09-16 06:37] LABS: HEMATOCRIT. 22.9 % (42.0-52.0); HEMOGLOBIN. 7.5 g/dL (14.0-18.0); MEAN CORPUSCULAR HEMOGLOBIN 28.9 pg (28.0-32.0); MEAN CORPUSCULAR VOLUME 88.8 fL (80.0-94.0); MEAN PLATELET VOLUME 9.3 fl (7.4-10.4); PLATELET 208 x1000/uL (130-400); RED BLOOD CELL COUNT 2.58 mill/uL (4.7-6.1); RED CELL DISTRIBUTION WIDTH 16.3 % (11.6-14.6)
[2019-09-16 09:52] LABS: BG CARBOXYHEMOGLOBIN 0.9 % (0.5-1.5); BG DEOXYHEMOGLOBIN 2.3 % (0.0-5.0); BG FRACTION INSPIRED OXYGEN 35; BG HCO3 ACT 22.9 mmol/L (22.0-26.0); BG METHEMOGLOBIN 0.3 % (0.0-1.5); BG OXYGEN SATURATION 97.7 % (92.0-98.5); BG OXYHEMOGLOBIN 96.5 % (94.0-97.0); BG PH 7.386 (7.350-7.450); BG PO2 108.4 mmHg (75.0-100.0); BG SAMPLE SITE A-LINE; BG TIDAL VOLUME(mL) 500 mL; BG TOTAL HEMOGLOBIN 7.4 g/dL (12.0-18.0); BG VENT MODE VENT - A/C; BG VENT RATE 18 set
[2019-09-16] MEDS: AMLODIPINE 10MG TABLET PO SCH (10:11)
[2019-09-16] MEDS: CITRIC ACID/SODIUM CITRATE SOLN 30ML UDC PO SCH ×3 (10:11→16:39)
[2019-09-16] MEDS: PANTOPRAZOLE SODIUM 40 MG/VIAL IV SCH (10:11)
[2019-09-16] MEDS: LEVETIRACETAM 1,000 MG in SODIUM CHLORIDE 0.9% 100 ML IV SCH ×2 (10:55→21:09)
[2019-09-16] MEDS: DEXTROSE 5% WATER 1,000 ML IV SCH (12:01)
[2019-09-16] MEDS: CLONIDINE 0.3MG TABLET PO SCH ×2 (13:29→21:09)
[2019-09-16 14:08] LABS: NUCLEATED RED BLOOD CELLS 3 /100 WBC
[2019-09-16] MEDS: MORPHINE SULFATE 4 MG/ML CPJ (NOT FOR IM USE) IV PRN (22:55)
[2019-09-17] VITALS (95 sets, daily range): BP systolic 105–140; BP diastolic 39–62
[2019-09-17] MEDS: NAFCILLIN SODIUM 2,000 MG in SODIUM CHLORIDE 0.9% 100 ML IV SCH ×6 (00:13→20:39)
[2019-09-17] MEDS: IPRATROPIUM/ALBUTEROL 0.5-3(2.5)MG/3ML NEB HHN SCH ×4 (01:46→20:22)
[2019-09-17] MEDS: PROPOFOL 10MG/ML 100ML 100 ML IV PRN ×4 (03:15→22:31)
[2019-09-17] MEDS: DEXTROSE 5% WATER 1,000 ML IV SCH ×2 (03:16→22:31)
[2019-09-17] MEDS: PHENYTOIN SODIUM 100MG/2ML VIAL IV SCH ×3 (05:48→22:31)
[2019-09-17] MEDS: HYDRALAZINE HCL 100MG TABLET PO SCH ×3 (05:48→22:59)
[2019-09-17] MEDS: CLONIDINE 0.3MG TABLET PO SCH ×4 (05:48→22:59)
[2019-09-17 05:52] LABS: HEMATOCRIT. 22.9 % (42.0-52.0); HEMOGLOBIN. 7.6 g/dL (14.0-18.0); MEAN CORPUSCULAR HEMOGLOBIN 29.4 pg (28.0-32.0); MEAN CORPUSCULAR VOLUME 88.5 fL (80.0-94.0); MEAN PLATELET VOLUME 8.8 fl (7.4-10.4); PLATELET 214 x1000/uL (130-400); RED BLOOD CELL COUNT 2.59 mill/uL (4.7-6.1); RED CELL DISTRIBUTION WIDTH 16.1 % (11.6-14.6)
[2019-09-17 08:47] LABS: BG BASE EXCESS -2.1 mmol/L (-2.0-2.0); BG CARBOXYHEMOGLOBIN 0.9 % (0.5-1.5); BG DEOXYHEMOGLOBIN 4.2 % (0.0-5.0); BG FRACTION INSPIRED OXYGEN 35; BG HCO3 ACT 23.1 mmol/L (22.0-26.0); BG METHEMOGLOBIN 0.2 % (0.0-1.5); BG OXYGEN SATURATION 95.8 % (92.0-98.5); BG OXYHEMOGLOBIN 94.7 % (94.0-97.0); BG PCO2 41.4 mmHg (35.0-45.0); BG PH 7.364 (7.350-7.450); BG PO2 86.6 mmHg (75.0-100.0); BG SAMPLE SITE A-LINE; BG TIDAL VOLUME(mL) 500 mL; BG TOTAL HEMOGLOBIN 7.4 g/dL (12.0-18.0); BG VENT MODE VENT - A/C; BG VENT RATE 18 set
[2019-09-17] MEDS: AMLODIPINE 10MG TABLET PO SCH (09:27)
[2019-09-17] MEDS: LEVETIRACETAM 1,000 MG in SODIUM CHLORIDE 0.9% 100 ML IV SCH ×2 (09:27→20:39)
[2019-09-17] MEDS: PANTOPRAZOLE SODIUM 40 MG/VIAL IV SCH (09:27)
[2019-09-17 11:07] LABS: NUCLEATED RED BLOOD CELLS 5 /100 WBC; PLATELET ESTIMATE NORMAL
[2019-09-17] MEDS: POLYVINYL ALCOHOL OPHTH DROPS 15ML BOTHEYE SCH ×2 (11:58→17:19)
[2019-09-17] MEDS: MINOXIDIL 2.5MG TABLET PO SCH ×2 (12:01→17:18)
[2019-09-17] MEDS: MORPHINE SULFATE 4 MG/ML CPJ (NOT FOR IM USE) IV PRN ×2 (16:54→18:58)
[2019-09-17] MEDS: NICARDIPINE 100 MG in SODIUM CHLORIDE 0.9% 60 ML IV PRN (17:36)
[2019-09-18] VITALS (94 sets, daily range): BP systolic 80–116; BP diastolic 30–52
[2019-09-18] MEDS: IPRATROPIUM/ALBUTEROL 0.5-3(2.5)MG/3ML NEB HHN SCH ×4 (00:52→20:25)
[2019-09-18] MEDS: NAFCILLIN SODIUM 2,000 MG in SODIUM CHLORIDE 0.9% 100 ML IV SCH ×7 (04:56→20:49)
[2019-09-18 05:36] LABS: HEMATOCRIT. 22.5 % (42.0-52.0); HEMOGLOBIN. 7.5 g/dL (14.0-18.0); MEAN CORPUSCULAR HEMOGLOBIN 29.4 pg (28.0-32.0); MEAN CORPUSCULAR VOLUME 88.4 fL (80.0-94.0); MEAN PLATELET VOLUME 8.8 fl (7.4-10.4); PLATELET 189 x1000/uL (130-400); RED BLOOD CELL COUNT 2.55 mill/uL (4.7-6.1); RED CELL DISTRIBUTION WIDTH 17.1 % (11.6-14.6)
[2019-09-18] MEDS: POLYVINYL ALCOHOL OPHTH DROPS 15ML BOTHEYE SCH ×4 (05:58→17:56)
[2019-09-18] MEDS: HYDRALAZINE HCL 100MG TABLET PO SCH ×3 (05:58→21:32)
[2019-09-18] MEDS: CLONIDINE 0.3MG TABLET PO SCH (06:00)
[2019-09-18] MEDS: PHENYTOIN SODIUM 100MG/2ML VIAL IV SCH ×3 (06:06→22:00)
[2019-09-18] MEDS: PANTOPRAZOLE SODIUM 40 MG/VIAL IV SCH (08:21)
[2019-09-18] MEDS: LEVETIRACETAM 1,000 MG in SODIUM CHLORIDE 0.9% 100 ML IV SCH ×2 (08:21→20:49)
[2019-09-18] MEDS: PROPOFOL 10MG/ML 100ML 100 ML IV PRN (08:23)
[2019-09-18] MEDS: MINOXIDIL 2.5MG TABLET PO SCH ×2 (08:23→10:15)
[2019-09-18] MEDS: AMLODIPINE 10MG TABLET PO SCH (08:25)
[2019-09-18 08:46] LABS: NUCLEATED RED BLOOD CELLS 6 /100 WBC; PLATELET ESTIMATE NORMAL
[2019-09-18 09:44] LABS: BG BASE EXCESS -3.1 mmol/L (-2.0-2.0); BG CARBOXYHEMOGLOBIN 1.5 % (0.5-1.5); BG DEOXYHEMOGLOBIN 2.5 % (0.0-5.0); BG FRACTION INSPIRED OXYGEN 35; BG HCO3 ACT 22.1 mmol/L (22.0-26.0); BG METHEMOGLOBIN 0.5 % (0.0-1.5); BG OXYGEN SATURATION 97.4 % (92.0-98.5); BG OXYHEMOGLOBIN 95.5 % (94.0-97.0); BG PO2 107.2 mmHg (75.0-100.0); BG SAMPLE SITE RIGHT RADIAL; BG TIDAL VOLUME(mL) 500 mL; BG TOTAL HEMOGLOBIN 7.2 g/dL (12.0-18.0); BG VENT MODE VENT - A/C; BG VENT RATE 18 set
[2019-09-18] MEDS: NEOMY SULF/BACITRAC ZN/POLY OINT 28GM TOP SCH ×2 (12:19→20:50)
[2019-09-18] MEDS: CLONIDINE 0.1MG TABLET PO SCH ×2 (14:00→21:33)
[2019-09-18] MEDS: DEXTROSE 5% WATER 1,000 ML IV SCH (14:05)
[2019-09-19] VITALS (95 sets, daily range): BP systolic 82–157; BP diastolic 28–56
[2019-09-19] MEDS: POLYVINYL ALCOHOL OPHTH DROPS 15ML BOTHEYE SCH ×5 (00:25→23:23)
[2019-09-19] MEDS: IPRATROPIUM/ALBUTEROL 0.5-3(2.5)MG/3ML NEB HHN SCH ×3 (00:38→21:13)
[2019-09-19] MEDS ORDERED: NOREPINEPHRINE 4 MG in DEXTROSE 5% WATER 250 ML IV PRN (02:00)
[2019-09-19] MEDS ORDERED: NOREPINEPHRINE 4MG/250ML PMX 250 ML IV PRN (02:00)
[2019-09-19] MEDS: NAFCILLIN SODIUM 2,000 MG in SODIUM CHLORIDE 0.9% 100 ML IV SCH ×8 (04:00→23:23)
[2019-09-19 05:28] LABS: MEAN CORPUSCULAR HEMOGLOBIN 28.8 pg (28.0-32.0); MEAN CORPUSCULAR VOLUME 87.7 fL (80.0-94.0); MEAN PLATELET VOLUME 8.6 fl (7.4-10.4); PLATELET 262 x1000/uL (130-400); RED BLOOD CELL COUNT 2.35 mill/uL (4.7-6.1); RED CELL DISTRIBUTION WIDTH 17.3 % (11.6-14.6)
[2019-09-19 05:44] LABS: HEMATOCRIT. 20.7 % (42.0-52.0); HEMOGLOBIN. 6.8 g/dL (14.0-18.0)
[2019-09-19] MEDS: CLONIDINE 0.1MG TABLET PO SCH (06:00)
[2019-09-19] MEDS: PHENYTOIN SODIUM 100MG/2ML VIAL IV SCH ×3 (06:00→21:07)
[2019-09-19] MEDS: HYDRALAZINE HCL 100MG TABLET PO SCH (06:00)
[2019-09-19] MEDS: MINOXIDIL 2.5MG TABLET PO SCH (08:08)
[2019-09-19] MEDS: LEVETIRACETAM 1,000 MG in SODIUM CHLORIDE 0.9% 100 ML IV SCH ×2 (08:08→20:14)
[2019-09-19] MEDS: PANTOPRAZOLE SODIUM 40 MG/VIAL IV SCH (08:08)
[2019-09-19] MEDS: DEXTROSE 5% WATER 1,000 ML IV SCH (08:08)
[2019-09-19] MEDS: NEOMY SULF/BACITRAC ZN/POLY OINT 28GM TOP SCH ×2 (08:09→20:18)
[2019-09-19 08:14] LABS: BG BASE EXCESS -5.4 mmol/L (-2.0-2.0); BG CARBOXYHEMOGLOBIN 1.5 % (0.5-1.5); BG DEOXYHEMOGLOBIN 5.4 % (0.0-5.0); BG FRACTION INSPIRED OXYGEN 30; BG OXYGEN SATURATION 94.5 % (92.0-98.5); BG OXYHEMOGLOBIN 93.1 % (94.0-97.0); BG PCO2 38.8 mmHg (35.0-45.0); BG PH 7.331 (7.350-7.450); BG PO2 79.3 mmHg (75.0-100.0); BG SAMPLE SITE RIGHT RADIAL; BG TIDAL VOLUME(mL) 500 mL; BG TOTAL HEMOGLOBIN 6.8 g/dL (12.0-18.0); BG VENT MODE VENT - A/C; BG VENT RATE 14 set
[2019-09-19 11:54] LABS: INR 1.3; PARTIAL THROMBOPLASTIN TIME 46.8 sec (23.4-31.0); PROTHROMBIN TIME 13.3 sec (9.6-11.0)
[2019-09-19 12:09] LABS: HEPATITIS B SURFACE AB 4.3 mIU/mL
[2019-09-19] MEDS: METOCLOPRAMIDE HCL 10MG/2ML VIAL IV SCH ×3 (12:18→23:23)
[2019-09-19 12:20] LABS: HEPATITIS B SURFACE ANTIGEN NEGATIVE
[2019-09-19 12:50] LABS: HEPATITIS A AB IGM NEGATIVE (NEGATIVE)
[2019-09-19] MEDS: NOREPINEPHRINE 32 MG in DEXT 5% WATER 468 ML IV PRN (13:54)
[2019-09-19 17:10] LABS: NUCLEATED RED BLOOD CELLS 4 /100 WBC; PLATELET ESTIMATE NORMAL
[2019-09-19 20:41] LABS: HEMATOCRIT 23.9 % (42.0-52.0); HEMOGLOBIN 7.7 g/dL (14.0-18.0)
[2019-09-20] VITALS (99 sets, daily range): BP systolic 81–131; BP diastolic 31–50
[2019-09-20] MEDS: IPRATROPIUM/ALBUTEROL 0.5-3(2.5)MG/3ML NEB HHN SCH ×4 (02:19→20:20)
[2019-09-20] MEDS: NAFCILLIN SODIUM 2,000 MG in SODIUM CHLORIDE 0.9% 100 ML IV SCH ×6 (04:04→23:27)
[2019-09-20 05:19] LABS: HEMATOCRIT. 24.1 % (42.0-52.0); MEAN CORPUSCULAR HEMOGLOBIN 28.9 pg (28.0-32.0); MEAN CORPUSCULAR VOLUME 87.6 fL (80.0-94.0); MEAN PLATELET VOLUME 8.1 fl (7.4-10.4); PLATELET 293 x1000/uL (130-400); RED BLOOD CELL COUNT 2.75 mill/uL (4.7-6.1); RED CELL DISTRIBUTION WIDTH 17.5 % (11.6-14.6)
[2019-09-20] MEDS: POLYVINYL ALCOHOL OPHTH DROPS 15ML BOTHEYE SCH ×3 (05:26→23:27)
[2019-09-20] MEDS: METOCLOPRAMIDE HCL 10MG/2ML VIAL IV SCH ×3 (05:26→23:27)
[2019-09-20] MEDS: PHENYTOIN SODIUM 100MG/2ML VIAL IV SCH ×3 (05:26→21:01)
[2019-09-20] MEDS: DEXTROSE 50% WATER 50ML SYRINGE IV PRN ×4 (05:38→23:28)
[2019-09-20] MEDS: PANTOPRAZOLE SODIUM 40 MG/VIAL IV SCH (08:35)
[2019-09-20] MEDS: NEOMY SULF/BACITRAC ZN/POLY OINT 28GM TOP SCH ×2 (08:36→20:59)
[2019-09-20] MEDS: LEVETIRACETAM 1,000 MG in SODIUM CHLORIDE 0.9% 100 ML IV SCH ×2 (09:48→20:28)
[2019-09-20] MEDS ORDERED: DEXT 5%/LACTATED RINGERS 1,000 ML IV SCH (11:15)
[2019-09-20] MEDS: BLOOD SUGAR DIAGNOSTIC STRIP TEST SCH ×2 (11:47→23:27)
[2019-09-20 14:01] LABS: NUCLEATED RED BLOOD CELLS 3 /100 WBC; PLATELET ESTIMATE NORMAL
[2019-09-21] VITALS (103 sets, daily range): BP systolic 86–160; BP diastolic 30–67
[2019-09-21] MEDS: IPRATROPIUM/ALBUTEROL 0.5-3(2.5)MG/3ML NEB HHN SCH ×4 (01:30→20:34)
[2019-09-21] MEDS: NOREPINEPHRINE 32 MG in DEXT 5% WATER 468 ML IV PRN (01:33)
[2019-09-21] MEDS: NAFCILLIN SODIUM 2,000 MG in SODIUM CHLORIDE 0.9% 100 ML IV SCH ×6 (03:40→23:05)
[2019-09-21 05:46] LABS: HEMATOCRIT. 21.9 % (42.0-52.0); HEMOGLOBIN. 7.1 g/dL (14.0-18.0); MEAN CORPUSCULAR HEMOGLOBIN 28.4 pg (28.0-32.0); MEAN CORPUSCULAR VOLUME 87.4 fL (80.0-94.0); MEAN PLATELET VOLUME 8.2 fl (7.4-10.4); PLATELET 281 x1000/uL (130-400); RED CELL DISTRIBUTION WIDTH 17.4 % (11.6-14.6)
[2019-09-21] MEDS: METOCLOPRAMIDE HCL 10MG/2ML VIAL IV SCH ×4 (06:09→23:04)
[2019-09-21] MEDS: BLOOD SUGAR DIAGNOSTIC STRIP TEST SCH ×4 (06:09→23:04)
[2019-09-21] MEDS: POLYVINYL ALCOHOL OPHTH DROPS 15ML BOTHEYE SCH ×4 (06:09→23:04)
[2019-09-21] MEDS: PHENYTOIN SODIUM 100MG/2ML VIAL IV SCH ×3 (06:09→21:10)
[2019-09-21] MEDS ORDERED: PHENYLEPHRINE 40 MG in DEXT 5% WATER 246 ML IV PRN (08:30)
[2019-09-21] MEDS ORDERED: DEXTROSE 10% WATER 500 ML IV ONE ×2 (08:30)
[2019-09-21] MEDS: NEOMY SULF/BACITRAC ZN/POLY OINT 28GM TOP SCH ×2 (09:00→20:45)
[2019-09-21 09:02] LABS: BG CARBOXYHEMOGLOBIN 0.7 % (0.5-1.5); BG FRACTION INSPIRED OXYGEN 30; BG METHEMOGLOBIN 1.2 % (0.0-1.5); BG OXYGEN SATURATION 82.7 % (92.0-98.5); BG OXYHEMOGLOBIN 81.1 % (94.0-97.0); BG PCO2 42.2 mmHg (35.0-45.0); BG PH 7.294 (7.350-7.450); BG PO2 51.8 mmHg (75.0-100.0); BG SAMPLE SITE RIGHT RADIAL; BG TIDAL VOLUME(mL) 500 mL; BG TOTAL HEMOGLOBIN 7.3 g/dL (12.0-18.0); BG VENT MODE VENT - A/C; BG VENT RATE 14 set
[2019-09-21] MEDS: LEVETIRACETAM 1,000 MG in SODIUM CHLORIDE 0.9% 100 ML IV SCH ×2 (10:48→21:09)
[2019-09-21] MEDS: PANTOPRAZOLE SODIUM 40 MG/VIAL IV SCH ×2 (10:49→20:44)
[2019-09-21] MEDS: METRONIDAZOLE 500 MG PREMIX 100 ML IV SCH ×3 (10:49→21:10)
[2019-09-21 12:21] LABS: NUCLEATED RED BLOOD CELLS 3 /100 WBC
[2019-09-21 12:23] LABS: PLATELET ESTIMATE NORMAL
[2019-09-21 13:23] LABS: BG BASE EXCESS 1.9 mmol/L (-2.0-2.0); BG CARBOXYHEMOGLOBIN 1.7 % (0.5-1.5); BG DEOXYHEMOGLOBIN 2.3 % (0.0-5.0); BG FRACTION INSPIRED OXYGEN 35; BG HCO3 ACT 26.6 mmol/L (22.0-26.0); BG METHEMOGLOBIN 0.5 % (0.0-1.5); BG OXYGEN SATURATION 97.6 % (92.0-98.5); BG OXYHEMOGLOBIN 95.5 % (94.0-97.0); BG PCO2 42.3 mmHg (35.0-45.0); BG PH 7.417 (7.350-7.450); BG PO2 105.5 mmHg (75.0-100.0); BG SAMPLE SITE RIGHT RADIAL; BG TIDAL VOLUME(mL) 500 mL; BG VENT MODE VENT - A/C; BG VENT RATE 18 set
[2019-09-21] MEDS: SUCRALFATE 1 G/10 ML UDC PO SCH ×2 (16:47→20:44)
[2019-09-21] MEDS: DEXT 10% WATER 1,000 ML IV SCH (18:19)
[2019-09-21] MEDS ORDERED: DEXT 10% WATER 1,000 ML IV SCH (20:00)
[2019-09-22] VITALS (97 sets, daily range): BP systolic 90–140; BP diastolic 31–85
[2019-09-22] MEDS: IPRATROPIUM/ALBUTEROL 0.5-3(2.5)MG/3ML NEB HHN SCH ×4 (01:35→21:35)
[2019-09-22] MEDS: NAFCILLIN SODIUM 2,000 MG in SODIUM CHLORIDE 0.9% 100 ML IV SCH ×3 (04:43→11:43)
[2019-09-22] MEDS: METOCLOPRAMIDE HCL 10MG/2ML VIAL IV SCH ×3 (05:12→17:45)
[2019-09-22] MEDS: PHENYTOIN SODIUM 100MG/2ML VIAL IV SCH ×3 (05:12→22:07)
[2019-09-22] MEDS: BLOOD SUGAR DIAGNOSTIC STRIP TEST SCH ×3 (05:13→18:12)
[2019-09-22] MEDS: METRONIDAZOLE 500 MG PREMIX 100 ML IV SCH ×3 (05:13→22:51)
[2019-09-22] MEDS: POLYVINYL ALCOHOL OPHTH DROPS 15ML BOTHEYE SCH ×3 (05:37→17:46)
[2019-09-22] MEDS: SUCRALFATE 1 G/10 ML UDC PO SCH ×4 (05:37→22:07)
[2019-09-22 06:04] LABS: HEMATOCRIT. 23.1 % (42.0-52.0); HEMOGLOBIN. 7.8 g/dL (14.0-18.0); MEAN CORPUSCULAR HEMOGLOBIN 28.8 pg (28.0-32.0); MEAN CORPUSCULAR VOLUME 85.2 fL (80.0-94.0); MEAN PLATELET VOLUME 8.4 fl (7.4-10.4); PLATELET 292 x1000/uL (130-400); RED BLOOD CELL COUNT 2.71 mill/uL (4.7-6.1); RED CELL DISTRIBUTION WIDTH 17.1 % (11.6-14.6)
[2019-09-22 08:08] LABS: BG BASE EXCESS -1.1 mmol/L (-2.0-2.0); BG CARBOXYHEMOGLOBIN 1.8 % (0.5-1.5); BG DEOXYHEMOGLOBIN 3.2 % (0.0-5.0); BG HCO3 ACT 23.6 mmol/L (22.0-26.0); BG METHEMOGLOBIN 0.6 % (0.0-1.5); BG OXYGEN SATURATION 96.7 % (92.0-98.5); BG OXYHEMOGLOBIN 94.4 % (94.0-97.0); BG PCO2 39.3 mmHg (35.0-45.0); BG PH 7.396 (7.350-7.450); BG PO2 95.1 mmHg (75.0-100.0); BG SAMPLE SITE RIGHT RADIAL; BG TIDAL VOLUME(mL) 500 mL; BG TOTAL HEMOGLOBIN 8.3 g/dL (12.0-18.0); BG VENT MODE VENT - A/C; BG VENT RATE 18 set
[2019-09-22] MEDS: PANTOPRAZOLE SODIUM 40 MG/VIAL IV SCH ×2 (08:44→22:08)
[2019-09-22] MEDS: THIAMINE HCL 100MG TABLET NG SCH (08:44)
[2019-09-22] MEDS: FOLIC ACID 1MG TABLET NG SCH (08:44)
[2019-09-22] MEDS: LEVETIRACETAM 1,000 MG in SODIUM CHLORIDE 0.9% 100 ML IV SCH ×2 (08:45→22:07)
[2019-09-22] MEDS: NEOMY SULF/BACITRAC ZN/POLY OINT 28GM TOP SCH ×2 (08:45→22:08)
[2019-09-22] MEDS: NOREPINEPHRINE 32 MG in DEXT 5% WATER 468 ML IV PRN (08:58)
[2019-09-22 09:53] LABS: NUCLEATED RED BLOOD CELLS 18 /100 WBC
[2019-09-22 09:54] LABS: PLATELET ESTIMATE NORMAL
[2019-09-22] MEDS: DEXT 10% WATER 1,000 ML IV SCH (17:47)
[2019-09-23] VITALS (97 sets, daily range): BP systolic 76–140; BP diastolic 32–57
[2019-09-23] MEDS: METOCLOPRAMIDE HCL 10MG/2ML VIAL IV SCH ×4 (00:45→17:57)
[2019-09-23] MEDS: POLYVINYL ALCOHOL OPHTH DROPS 15ML BOTHEYE SCH ×4 (00:46→17:58)
[2019-09-23] MEDS: IPRATROPIUM/ALBUTEROL 0.5-3(2.5)MG/3ML NEB HHN SCH ×5 (01:06→21:00)
[2019-09-23 05:42] LABS: HEMATOCRIT. 22.5 % (42.0-52.0); HEMOGLOBIN. 7.7 g/dL (14.0-18.0); MEAN CORPUSCULAR HEMOGLOBIN 29.3 pg (28.0-32.0); MEAN CORPUSCULAR VOLUME 85.1 fL (80.0-94.0); MEAN PLATELET VOLUME 8.5 fl (7.4-10.4); PLATELET 262 x1000/uL (130-400); RED BLOOD CELL COUNT 2.64 mill/uL (4.7-6.1); RED CELL DISTRIBUTION WIDTH 18.1 % (11.6-14.6)
[2019-09-23] MEDS: SUCRALFATE 1 G/10 ML UDC PO SCH ×4 (05:42→22:38)
[2019-09-23] MEDS: METRONIDAZOLE 500 MG PREMIX 100 ML IV SCH ×3 (05:42→22:39)
[2019-09-23] MEDS: PHENYTOIN SODIUM 100MG/2ML VIAL IV SCH ×3 (05:42→22:38)
[2019-09-23] MEDS: BLOOD SUGAR DIAGNOSTIC STRIP TEST SCH ×4 (06:00→17:58)
[2019-09-23 07:26] LABS: NUCLEATED RED BLOOD CELLS 72 /100 WBC
[2019-09-23 07:27] LABS: PLATELET ESTIMATE NORMAL
[2019-09-23] MEDS: PANTOPRAZOLE SODIUM 40 MG/VIAL IV SCH ×2 (10:51→22:18)
[2019-09-23] MEDS: LEVETIRACETAM 1,000 MG in SODIUM CHLORIDE 0.9% 100 ML IV SCH ×2 (10:52→22:19)
[2019-09-23] MEDS: FOLIC ACID 1MG TABLET NG SCH (10:52)
[2019-09-23] MEDS: THIAMINE HCL 100MG TABLET NG SCH (10:52)
[2019-09-23] MEDS: NEOMY SULF/BACITRAC ZN/POLY OINT 28GM TOP SCH ×2 (11:17→21:00)
[2019-09-23] MEDS: DEXT 10% WATER 1,000 ML IV SCH (17:58)
[2019-09-23] MEDS: MIDODRINE HCL 5MG TABLET PO SCH (18:00)
[2019-09-23 20:12] LABS: PROTHROMBIN TIME 41.1 sec (9.6-11.0)
[2019-09-23 20:38] LABS: INR 4.2
[2019-09-23 21:03] LABS: FOLIC ACID (FOLATE) SERUM 12.9 ng/mL (>5.38)
[2019-09-23] MEDS ORDERED: PHYTONADIONE 10MG/ML AMP SUBCUT NR (23:00)
[2019-09-24] VITALS (89 sets, daily range): BP systolic 90–153; BP diastolic 35–77
[2019-09-24] MEDS: BLOOD SUGAR DIAGNOSTIC STRIP TEST SCH ×4 (00:02→17:03)
[2019-09-24] MEDS: METOCLOPRAMIDE HCL 10MG/2ML VIAL IV SCH ×5 (00:05→23:39)
[2019-09-24] MEDS: POLYVINYL ALCOHOL OPHTH DROPS 15ML BOTHEYE SCH ×3 (00:06→17:26)
[2019-09-24] MEDS: IPRATROPIUM/ALBUTEROL 0.5-3(2.5)MG/3ML NEB HHN SCH ×2 (02:12→09:08)
[2019-09-24] MEDS: PHENYTOIN SODIUM 100MG/2ML VIAL IV SCH ×4 (06:00→21:39)
[2019-09-24] MEDS: METRONIDAZOLE 500 MG PREMIX 100 ML IV SCH ×4 (06:00→21:58)
[2019-09-24] MEDS: SUCRALFATE 1 G/10 ML UDC PO SCH ×4 (06:30→21:32)
[2019-09-24 08:57] LABS: INR 2.2; PROTHROMBIN TIME 22.5 sec (9.6-11.0)
[2019-09-24] MEDS ORDERED: PHYTONADIONE 10MG/ML AMP SUBCUT NR (09:00)
[2019-09-24 09:03] LABS: HEMATOCRIT. 21.7 % (42.0-52.0); HEMOGLOBIN. 7.6 g/dL (14.0-18.0); MEAN CORPUSCULAR HEMOGLOBIN 29.4 pg (28.0-32.0); MEAN CORPUSCULAR VOLUME 84.5 fL (80.0-94.0); MEAN PLATELET VOLUME 8.1 fl (7.4-10.4); PLATELET 195 x1000/uL (130-400); RED BLOOD CELL COUNT 2.57 mill/uL (4.7-6.1); RED CELL DISTRIBUTION WIDTH 18.4 % (11.6-14.6)
[2019-09-24] MEDS: PANTOPRAZOLE SODIUM 40 MG/VIAL IV SCH ×2 (09:47→21:32)
[2019-09-24] MEDS: FOLIC ACID 1MG TABLET NG SCH (09:47)
[2019-09-24] MEDS: MIDODRINE HCL 5MG TABLET PO SCH ×3 (09:47→17:26)
[2019-09-24] MEDS: THIAMINE HCL 100MG TABLET NG SCH (09:47)
[2019-09-24] MEDS: LEVETIRACETAM 1,000 MG in SODIUM CHLORIDE 0.9% 100 ML IV SCH ×2 (09:48→20:39)
[2019-09-24] MEDS: NEOMY SULF/BACITRAC ZN/POLY OINT 28GM TOP SCH ×2 (09:49→21:39)
[2019-09-24 10:44] LABS: NUCLEATED RED BLOOD CELLS 75 /100 WBC
[2019-09-24 10:45] LABS: PLATELET ESTIMATE NORMAL
[2019-09-24] MEDS: DEXT 10% WATER 1,000 ML IV SCH (17:39)
[2019-09-24] MEDS ORDERED: POTASSIUM CHLORIDE 20MEQ/PACKET NG NR (19:30)
[2019-09-24] MEDS: NOREPINEPHRINE 32 MG in DEXT 5% WATER 468 ML IV PRN (20:15)
[2019-09-24 23:09] LABS: HEMOGLOBIN 7.6 g/dL (14.0-18.0)
[2019-09-24 23:20] LABS: INR 1.4; PROTHROMBIN TIME 14.3 sec (9.6-11.0)
[2019-09-25] VITALS (98 sets, daily range): BP systolic 74–224; BP diastolic 32–78
[2019-09-25] MEDS: IPRATROPIUM/ALBUTEROL 0.5-3(2.5)MG/3ML NEB HHN SCH ×4 (01:35→20:15)
[2019-09-25 05:35] LABS: HEMATOCRIT. 23.2 % (42.0-52.0); HEMOGLOBIN. 7.9 g/dL (14.0-18.0); MEAN CORPUSCULAR HEMOGLOBIN 29.4 pg (28.0-32.0); MEAN PLATELET VOLUME 8.2 fl (7.4-10.4); PLATELET 170 x1000/uL (130-400); RED BLOOD CELL COUNT 2.69 mill/uL (4.7-6.1); RED CELL DISTRIBUTION WIDTH 17.9 % (11.6-14.6)
[2019-09-25 05:38] LABS: INR 1.3
[2019-09-25] MEDS: PHENYTOIN SODIUM 100MG/2ML VIAL IV SCH ×3 (05:52→21:01)
[2019-09-25] MEDS: METOCLOPRAMIDE HCL 10MG/2ML VIAL IV SCH ×3 (05:59→17:00)
[2019-09-25] MEDS: BLOOD SUGAR DIAGNOSTIC STRIP TEST SCH ×4 (06:00→17:01)
[2019-09-25] MEDS: POLYVINYL ALCOHOL OPHTH DROPS 15ML BOTHEYE SCH ×4 (06:01→17:01)
[2019-09-25] MEDS: METRONIDAZOLE 500 MG PREMIX 100 ML IV SCH ×3 (06:01→21:01)
[2019-09-25] MEDS: SUCRALFATE 1 G/10 ML UDC PO SCH ×4 (06:32→21:00)
[2019-09-25] MEDS ORDERED: POTASSIUM CHLORIDE 20MEQ/PACKET PO NR (07:00)
[2019-09-25 07:36] LABS: NUCLEATED RED BLOOD CELLS 67 /100 WBC
[2019-09-25 07:44] LABS: PLATELET ESTIMATE NORMAL
[2019-09-25] MEDS: MIDODRINE HCL 5MG TABLET PO SCH ×3 (08:15→17:00)
[2019-09-25] MEDS: FOLIC ACID 1MG TABLET NG SCH (08:16)
[2019-09-25] MEDS: THIAMINE HCL 100MG TABLET NG SCH (08:16)
[2019-09-25] MEDS: FLUDROCORTISONE ACETATE 0.1MG TABLET PO SCH (08:16)
[2019-09-25] MEDS: PANTOPRAZOLE SODIUM 40 MG/VIAL IV SCH ×2 (08:16→21:00)
[2019-09-25] MEDS: NEOMY SULF/BACITRAC ZN/POLY OINT 28GM TOP SCH ×2 (08:17→21:03)
[2019-09-25] MEDS: LEVETIRACETAM 1,000 MG in SODIUM CHLORIDE 0.9% 100 ML IV SCH ×2 (08:43→21:00)
[2019-09-25] MEDS: NAFCILLIN SODIUM 2,000 MG in SODIUM CHLORIDE 0.9% 100 ML IV SCH ×2 (16:54→21:00)
[2019-09-25] MEDS: DEXTROSE 50% WATER 50ML SYRINGE IV PRN ×2 (17:01→22:31)
[2019-09-26] VITALS (89 sets, daily range): BP systolic 76–129; BP diastolic 24–72
[2019-09-26] MEDS: METOCLOPRAMIDE HCL 10MG/2ML VIAL IV SCH ×4 (00:05→17:20)
[2019-09-26] MEDS: NAFCILLIN SODIUM 2,000 MG in SODIUM CHLORIDE 0.9% 100 ML IV SCH ×6 (00:05→20:43)
[2019-09-26] MEDS: BLOOD SUGAR DIAGNOSTIC STRIP TEST SCH ×4 (00:06→17:21)
[2019-09-26] MEDS: POLYVINYL ALCOHOL OPHTH DROPS 15ML BOTHEYE SCH ×4 (00:06→17:21)
[2019-09-26] MEDS: IPRATROPIUM/ALBUTEROL 0.5-3(2.5)MG/3ML NEB HHN SCH ×4 (02:05→20:04)
[2019-09-26] MEDS: DEXTROSE 50% WATER 50ML SYRINGE IV PRN ×2 (02:29→13:23)
[2019-09-26] MEDS: NOREPINEPHRINE 32 MG in DEXT 5% WATER 468 ML IV PRN (05:22)
[2019-09-26] MEDS: PHENYTOIN SODIUM 100MG/2ML VIAL IV SCH ×3 (05:22→21:38)
[2019-09-26 05:52] LABS: PHOSPHORUS 5.1 mg/dL (2.5-4.9)
[2019-09-26 06:03] LABS: MEAN CORPUSCULAR HEMOGLOBIN 29.8 pg (28.0-32.0); MEAN CORPUSCULAR VOLUME 86.1 fL (80.0-94.0); MEAN PLATELET VOLUME 8.5 fl (7.4-10.4); PLATELET 122 x1000/uL (130-400); RED BLOOD CELL COUNT 2.22 mill/uL (4.7-6.1); RED CELL DISTRIBUTION WIDTH 17.7 % (11.6-14.6)
[2019-09-26] MEDS: SUCRALFATE 1 G/10 ML UDC PO SCH ×4 (06:05→21:38)
[2019-09-26 06:44] LABS: HEMATOCRIT. 19.1 % (42.0-52.0); HEMOGLOBIN. 6.6 g/dL (14.0-18.0)
[2019-09-26 08:13] LABS: NUCLEATED RED BLOOD CELLS 49 /100 WBC; PLATELET ESTIMATE SLIGHTLY DECREASED
[2019-09-26] MEDS: THIAMINE HCL 100MG TABLET NG SCH (09:23)
[2019-09-26] MEDS: LEVETIRACETAM 1,000 MG in SODIUM CHLORIDE 0.9% 100 ML IV SCH ×2 (09:23→21:33)
[2019-09-26] MEDS: FLUDROCORTISONE ACETATE 0.1MG TABLET PO SCH (09:23)
[2019-09-26] MEDS: PANTOPRAZOLE SODIUM 40 MG/VIAL IV SCH ×2 (09:23→21:38)
[2019-09-26] MEDS: FOLIC ACID 1MG TABLET NG SCH (09:23)
[2019-09-26] MEDS: NEOMY SULF/BACITRAC ZN/POLY OINT 28GM TOP SCH ×2 (09:24→21:42)
[2019-09-26] MEDS: MIDODRINE HCL 5MG TABLET PO SCH ×3 (09:24→17:20)
[2019-09-26] MEDS ORDERED: BISACODYL 10MG SUPP PR SCH (10:30)
[2019-09-26] MEDS: DEXT 5%/0.9% NACL 1,000 ML IV SCH (12:02)
[2019-09-27] VITALS (99 sets, daily range): BP systolic 78–177; BP diastolic 31–75
[2019-09-27] MEDS: DEXTROSE 50% WATER 50ML SYRINGE IV PRN (00:01)
[2019-09-27] MEDS: BLOOD SUGAR DIAGNOSTIC STRIP TEST SCH ×5 (00:01→23:41)
[2019-09-27] MEDS: METOCLOPRAMIDE HCL 10MG/2ML VIAL IV SCH ×5 (00:22→23:40)
[2019-09-27] MEDS: NAFCILLIN SODIUM 2,000 MG in SODIUM CHLORIDE 0.9% 100 ML IV SCH ×7 (00:22→23:46)
[2019-09-27] MEDS: POLYVINYL ALCOHOL OPHTH DROPS 15ML BOTHEYE SCH ×5 (01:18→23:41)
[2019-09-27] MEDS: IPRATROPIUM/ALBUTEROL 0.5-3(2.5)MG/3ML NEB HHN SCH ×4 (01:58→20:22)
[2019-09-27 05:32] LABS: HEMATOCRIT. 21.4 % (42.0-52.0); HEMOGLOBIN. 7.4 g/dL (14.0-18.0); MEAN CORPUSCULAR HEMOGLOBIN 29.8 pg (28.0-32.0); MEAN CORPUSCULAR VOLUME 86.6 fL (80.0-94.0); MEAN PLATELET VOLUME 8.5 fl (7.4-10.4); PLATELET 125 x1000/uL (130-400); RED BLOOD CELL COUNT 2.47 mill/uL (4.7-6.1); RED CELL DISTRIBUTION WIDTH 17.5 % (11.6-14.6)
[2019-09-27 05:40] LABS: PHOSPHORUS 5.4 mg/dL (2.5-4.9)
[2019-09-27] MEDS: PHENYTOIN SODIUM 100MG/2ML VIAL IV SCH ×3 (06:38→22:10)
[2019-09-27] MEDS: SUCRALFATE 1 G/10 ML UDC PO SCH ×4 (06:39→21:17)
[2019-09-27 07:16] LABS: NUCLEATED RED BLOOD CELLS 30 /100 WBC
[2019-09-27 07:17] LABS: PLATELET ESTIMATE SLIGHTLY DECREASED
[2019-09-27] MEDS: PANTOPRAZOLE SODIUM 40 MG/VIAL IV SCH ×2 (08:21→21:17)
[2019-09-27] MEDS: FOLIC ACID 1MG TABLET NG SCH (08:22)
[2019-09-27] MEDS: THIAMINE HCL 100MG TABLET NG SCH (08:22)
[2019-09-27] MEDS: FLUDROCORTISONE ACETATE 0.1MG TABLET PO SCH (08:22)
[2019-09-27] MEDS: MIDODRINE HCL 5MG TABLET PO SCH ×3 (08:22→16:51)
[2019-09-27 08:29] LABS: BG BASE EXCESS -4.5 mmol/L (-2.0-2.0); BG CARBOXYHEMOGLOBIN 1.6 % (0.5-1.5); BG DEOXYHEMOGLOBIN 3.6 % (0.0-5.0); BG HCO3 ACT 20.5 mmol/L (22.0-26.0); BG METHEMOGLOBIN 0.3 % (0.0-1.5); BG OXYGEN SATURATION 96.3 % (92.0-98.5); BG OXYHEMOGLOBIN 94.5 % (94.0-97.0); BG PCO2 36.9 mmHg (35.0-45.0); BG PH 7.362 (7.350-7.450); BG PO2 88.4 mmHg (75.0-100.0); BG SAMPLE SITE RIGHT RADIAL; BG TIDAL VOLUME(mL) 500 mL; BG TOTAL HEMOGLOBIN 8.1 g/dL (12.0-18.0); BG VENT MODE VENT - A/C; BG VENT RATE 18 set
[2019-09-27] MEDS: LEVETIRACETAM 1,000 MG in SODIUM CHLORIDE 0.9% 100 ML IV SCH ×2 (10:47→21:19)
[2019-09-27] MEDS: NEOMY SULF/BACITRAC ZN/POLY OINT 28GM TOP SCH ×2 (10:48→21:18)
[2019-09-27] MEDS: DEXT 5%/0.9% NACL 1,000 ML IV SCH (12:08)
[2019-09-27] MEDS: NOREPINEPHRINE 32 MG in DEXT 5% WATER 468 ML IV PRN (23:25)
[2019-09-28] VITALS (99 sets, daily range): BP systolic 81–149; BP diastolic 27–117
[2019-09-28] MEDS: IPRATROPIUM/ALBUTEROL 0.5-3(2.5)MG/3ML NEB HHN SCH ×4 (00:26→21:07)
[2019-09-28] MEDS: NAFCILLIN SODIUM 2,000 MG in SODIUM CHLORIDE 0.9% 100 ML IV SCH ×5 (03:34→23:43)
[2019-09-28] MEDS: METOCLOPRAMIDE HCL 10MG/2ML VIAL IV SCH ×4 (05:32→23:36)
[2019-09-28] MEDS: PHENYTOIN SODIUM 100MG/2ML VIAL IV SCH ×3 (05:40→22:23)
[2019-09-28 06:05] LABS: HEMATOCRIT. 24.5 % (42.0-52.0); HEMOGLOBIN. 8.4 g/dL (14.0-18.0); MEAN CORPUSCULAR HEMOGLOBIN 30.4 pg (28.0-32.0); MEAN CORPUSCULAR VOLUME 88.6 fL (80.0-94.0); MEAN PLATELET VOLUME 8.1 fl (7.4-10.4); PLATELET 112 x1000/uL (130-400); RED BLOOD CELL COUNT 2.77 mill/uL (4.7-6.1); RED CELL DISTRIBUTION WIDTH 18.5 % (11.6-14.6)
[2019-09-28] MEDS: SUCRALFATE 1 G/10 ML UDC PO SCH ×4 (06:38→22:25)
[2019-09-28] MEDS: BLOOD SUGAR DIAGNOSTIC STRIP TEST SCH ×3 (06:38→17:35)
[2019-09-28] MEDS: POLYVINYL ALCOHOL OPHTH DROPS 15ML BOTHEYE SCH ×4 (06:39→23:36)
[2019-09-28] MEDS: NEOMY SULF/BACITRAC ZN/POLY OINT 28GM TOP SCH ×2 (09:00→22:25)
[2019-09-28] MEDS: PANTOPRAZOLE SODIUM 40 MG/VIAL IV SCH ×2 (09:00→22:35)
[2019-09-28] MEDS: MIDODRINE HCL 5MG TABLET PO SCH ×3 (09:00→18:16)
[2019-09-28] MEDS: THIAMINE HCL 100MG TABLET NG SCH (09:00)
[2019-09-28] MEDS: FLUDROCORTISONE ACETATE 0.1MG TABLET PO SCH (09:00)
[2019-09-28] MEDS: LEVETIRACETAM 1,000 MG in SODIUM CHLORIDE 0.9% 100 ML IV SCH ×2 (09:05→22:41)
[2019-09-28 11:03] LABS: NUCLEATED RED BLOOD CELLS 38 /100 WBC; PLATELET ESTIMATE DECREASED
[2019-09-28] MEDS ORDERED: SODIUM BICARBONATE 4% (2.4MEQ) 5ML VIAL IV ONE (11:32)
[2019-09-28] MEDS ORDERED: LIDOCAINE HCL 1% 20ML VIAL (Pyxis) INJ ONE (11:32)
[2019-09-28] MEDS ORDERED: DEXTROSE 10% WATER 500 ML IV SCH (13:00)
[2019-09-28] MEDS: DEXTROSE 10% WATER 500 ML IV SCH (13:00)
[2019-09-28 13:14] LABS: INR 1.3; PROTHROMBIN TIME 13.6 sec (9.6-11.0)
[2019-09-28] MEDS: FOLIC ACID 1MG TABLET NG SCH (15:04)
[2019-09-29] VITALS (103 sets, daily range): BP systolic 97–143; BP diastolic 27–53
[2019-09-29] MEDS: BLOOD SUGAR DIAGNOSTIC STRIP TEST SCH ×4 (00:16→18:19)
[2019-09-29] MEDS: IPRATROPIUM/ALBUTEROL 0.5-3(2.5)MG/3ML NEB HHN SCH ×2 (00:17→20:36)
[2019-09-29 03:28] LABS: MEAN CORPUSCULAR HEMOGLOBIN 30.3 pg (28.0-32.0); MEAN PLATELET VOLUME 8.2 fl (7.4-10.4); PLATELET 80 x1000/uL (130-400); RED BLOOD CELL COUNT 2.02 mill/uL (4.7-6.1)
[2019-09-29 03:32] LABS: INR 1.2
[2019-09-29] MEDS: NAFCILLIN SODIUM 2,000 MG in SODIUM CHLORIDE 0.9% 100 ML IV SCH ×2 (03:40→09:59)
[2019-09-29 03:54] LABS: HEMOGLOBIN. 6.1 g/dL (14.0-18.0)
[2019-09-29 03:55] LABS: HEMATOCRIT. 17.4 % (42.0-52.0)
[2019-09-29] MEDS: PHENYTOIN SODIUM 100MG/2ML VIAL IV SCH ×3 (05:53→21:03)
[2019-09-29] MEDS: POLYVINYL ALCOHOL OPHTH DROPS 15ML BOTHEYE SCH ×3 (05:53→18:00)
[2019-09-29] MEDS: SUCRALFATE 1 G/10 ML UDC PO SCH ×4 (06:03→20:42)
[2019-09-29] MEDS: METOCLOPRAMIDE HCL 10MG/2ML VIAL IV SCH ×3 (06:03→18:00)
[2019-09-29] MEDS: NOREPINEPHRINE 32 MG in DEXT 5% WATER 468 ML IV PRN (08:14)
[2019-09-29] MEDS: MIDODRINE HCL 5MG TABLET PO SCH ×3 (09:58→17:00)
[2019-09-29] MEDS: THIAMINE HCL 100MG TABLET NG SCH (09:59)
[2019-09-29] MEDS: FOLIC ACID 1MG TABLET NG SCH (09:59)
[2019-09-29] MEDS: PANTOPRAZOLE SODIUM 40 MG/VIAL IV SCH ×2 (09:59→20:42)
[2019-09-29] MEDS: FLUDROCORTISONE ACETATE 0.1MG TABLET PO SCH (10:09)
[2019-09-29] MEDS: LEVETIRACETAM 1,000 MG in SODIUM CHLORIDE 0.9% 100 ML IV SCH ×2 (10:09→20:42)
[2019-09-29] MEDS: NEOMY SULF/BACITRAC ZN/POLY OINT 28GM TOP SCH ×2 (10:10→20:43)
[2019-09-29 11:36] LABS: NUCLEATED RED BLOOD CELLS 78 /100 WBC
[2019-09-29 11:42] LABS: PLATELET ESTIMATE DECREASED
[2019-09-29] MEDS ORDERED: CEFTRIAXONE 2 G PREMIX 50 ML IV SCH (12:30)
[2019-09-29] MEDS: DEXTROSE 10% WATER 500 ML IV SCH (12:32)
[2019-09-29] MEDS ORDERED: OCTREOTIDE ACETATE 50 MCG/ML 1ML IV NR (14:30)
[2019-09-29] MEDS: CEFTRIAXONE 2 G in DEXTROSE 5% WATER 50 ML IV SCH (14:59)
[2019-09-29] MEDS: METRONIDAZOLE 500 MG PREMIX 100 ML IV SCH ×2 (15:00→21:03)
[2019-09-29] MEDS: OCTREOTIDE 1,000 MCG in SODIUM CHLORIDE 0.9% 98 ML IV SCH (16:24)
[2019-09-29 16:29] LABS: HEMATOCRIT 26.4 % (42.0-52.0); HEMOGLOBIN 9.4 g/dL (14.0-18.0)
[2019-09-29] MEDS: AMOXICILLIN 500 MG CAPSULE NG SCH (20:42)
[2019-09-29] MEDS: CLARITHROMYCIN 500MG TABLET NG SCH (20:42)
[2019-09-30] VITALS (137 sets, daily range): BP systolic 53–144; BP diastolic 24–52
[2019-09-30] MEDS: POLYVINYL ALCOHOL OPHTH DROPS 15ML BOTHEYE SCH ×4 (00:14→18:54)
[2019-09-30] MEDS: METOCLOPRAMIDE HCL 10MG/2ML VIAL IV SCH ×4 (00:14→18:54)
[2019-09-30] MEDS: BLOOD SUGAR DIAGNOSTIC STRIP TEST SCH ×4 (00:14→18:52)
[2019-09-30] MEDS: CEFTRIAXONE 2 G in DEXTROSE 5% WATER 50 ML IV SCH ×2 (05:17→18:53)
[2019-09-30 05:43] LABS: MEAN CORPUSCULAR VOLUME 86.8 fL (80.0-94.0); MEAN PLATELET VOLUME 8.2 fl (7.4-10.4); PLATELET 73 x1000/uL (130-400); RED BLOOD CELL COUNT 2.25 mill/uL (4.7-6.1); RED CELL DISTRIBUTION WIDTH 17.2 % (11.6-14.6)
[2019-09-30 05:49] LABS: HEMATOCRIT. 19.5 % (42.0-52.0)
[2019-09-30] MEDS: SUCRALFATE 1 G/10 ML UDC PO SCH ×4 (06:00→20:15)
[2019-09-30] MEDS: METRONIDAZOLE 500 MG PREMIX 100 ML IV SCH ×3 (06:01→21:24)
[2019-09-30] MEDS: PHENYTOIN SODIUM 100MG/2ML VIAL IV SCH ×3 (06:01→21:23)
[2019-09-30] MEDS: IPRATROPIUM/ALBUTEROL 0.5-3(2.5)MG/3ML NEB HHN SCH ×3 (07:43→20:44)
[2019-09-30] MEDS: LEVETIRACETAM 1,000 MG in SODIUM CHLORIDE 0.9% 100 ML IV SCH ×2 (09:01→20:17)
[2019-09-30] MEDS: AMOXICILLIN 500 MG CAPSULE NG SCH ×2 (09:02→20:15)
[2019-09-30] MEDS: FLUDROCORTISONE ACETATE 0.1MG TABLET PO SCH (09:03)
[2019-09-30] MEDS: MIDODRINE HCL 5MG TABLET PO SCH ×3 (09:03→17:00)
[2019-09-30] MEDS: FOLIC ACID 1MG TABLET NG SCH (09:03)
[2019-09-30] MEDS: PANTOPRAZOLE SODIUM 40 MG/VIAL IV SCH ×2 (09:03→20:13)
[2019-09-30] MEDS: THIAMINE HCL 100MG TABLET NG SCH (09:03)
[2019-09-30] MEDS: CLARITHROMYCIN 500MG TABLET NG SCH ×2 (09:03→20:16)
[2019-09-30] MEDS: NEOMY SULF/BACITRAC ZN/POLY OINT 28GM TOP SCH ×2 (09:04→20:16)
[2019-09-30] MEDS: OCTREOTIDE 1,000 MCG in SODIUM CHLORIDE 0.9% 98 ML IV SCH (10:02)
[2019-09-30] MEDS ORDERED: NOREPINEPHRINE 8 MG in DEXTROSE 5% WATER 250 ML IV PRN (12:00)
[2019-09-30] MEDS ORDERED: PHENYLEPHRINE 50 MG in DEXTROSE 5% WATER 250 ML IV PRN (12:00)
[2019-09-30 12:08] LABS: NUCLEATED RED BLOOD CELLS 36 /100 WBC; PLATELET ESTIMATE DECREASED
[2019-09-30] MEDS ORDERED: NOREPINEPHRINE 8 MG in DEXT 5% WATER 242 ML IV PRN (15:45)
[2019-09-30 18:24] LABS: HEMATOCRIT 22.8 % (42.0-52.0); HEMOGLOBIN 8.3 g/dL (14.0-18.0)
[2019-09-30 23:33] LABS: HEMATOCRIT 21.3 % (42.0-52.0); HEMOGLOBIN 7.9 g/dL (14.0-18.0)
[2019-10-01] VITALS (99 sets, daily range): BP systolic 58–148; BP diastolic 24–66
[2019-10-01] MEDS: METOCLOPRAMIDE HCL 10MG/2ML VIAL IV SCH ×4 (00:24→17:39)
[2019-10-01] MEDS: BLOOD SUGAR DIAGNOSTIC STRIP TEST SCH ×5 (00:25→23:31)
[2019-10-01] MEDS: POLYVINYL ALCOHOL OPHTH DROPS 15ML BOTHEYE SCH ×5 (00:25→23:31)
[2019-10-01] MEDS: NOREPINEPHRINE 32 MG in DEXT 5% WATER 218 ML IV PRN ×2 (02:23→11:28)
[2019-10-01] MEDS: IPRATROPIUM/ALBUTEROL 0.5-3(2.5)MG/3ML NEB HHN SCH ×4 (02:36→20:47)
[2019-10-01 05:44] LABS: HEMATOCRIT. 22.9 % (42.0-52.0); HEMOGLOBIN. 8.2 g/dL (14.0-18.0); MEAN CORPUSCULAR HEMOGLOBIN 31.7 pg (28.0-32.0); MEAN CORPUSCULAR VOLUME 88.5 fL (80.0-94.0); MEAN PLATELET VOLUME 8.7 fl (7.4-10.4); PLATELET 57 x1000/uL (130-400); RED BLOOD CELL COUNT 2.59 mill/uL (4.7-6.1); RED CELL DISTRIBUTION WIDTH 16.5 % (11.6-14.6)
[2019-10-01] MEDS: CEFTRIAXONE 2 G in DEXTROSE 5% WATER 50 ML IV SCH ×2 (06:00→17:39)
[2019-10-01] MEDS: PHENYTOIN SODIUM 100MG/2ML VIAL IV SCH ×3 (06:00→21:40)
[2019-10-01] MEDS: SUCRALFATE 1 G/10 ML UDC PO SCH ×4 (07:09→21:40)
[2019-10-01] MEDS: METRONIDAZOLE 500 MG PREMIX 100 ML IV SCH ×3 (07:33→21:40)
[2019-10-01] MEDS: DEXTROSE 10% WATER 500 ML IV SCH (08:00)
[2019-10-01] MEDS: FLUDROCORTISONE ACETATE 0.1MG TABLET PO SCH (08:02)
[2019-10-01] MEDS: MIDODRINE HCL 5MG TABLET PO SCH ×3 (08:02→16:32)
[2019-10-01] MEDS: FOLIC ACID 1MG TABLET NG SCH (08:02)
[2019-10-01] MEDS: AMOXICILLIN 500 MG CAPSULE NG SCH ×2 (08:02→21:40)
[2019-10-01] MEDS: CLARITHROMYCIN 500MG TABLET NG SCH ×2 (08:02→21:40)
[2019-10-01] MEDS: LEVETIRACETAM 1,000 MG in SODIUM CHLORIDE 0.9% 100 ML IV SCH ×2 (08:03→21:39)
[2019-10-01] MEDS: PANTOPRAZOLE SODIUM 40 MG/VIAL IV SCH ×2 (08:03→21:39)
[2019-10-01] MEDS: THIAMINE HCL 100MG TABLET NG SCH (08:03)
[2019-10-01] MEDS: NEOMY SULF/BACITRAC ZN/POLY OINT 28GM TOP SCH ×2 (08:04→21:40)
[2019-10-01] MEDS ORDERED: MORPHINE SULFATE 4 MG/ML CPJ (NOT FOR IM USE) IV PRN (15:45)
[2019-10-01 17:34] LABS: NUCLEATED RED BLOOD CELLS 19 /100 WBC; PLATELET ESTIMATE MARKEDLY DECREASED
[2019-10-02] VITALS (76 sets, daily range): BP systolic 85–160; BP diastolic 24–77
[2019-10-02] MEDS: METOCLOPRAMIDE HCL 10MG/2ML VIAL IV SCH ×4 (00:03→18:33)
[2019-10-02] MEDS: IPRATROPIUM/ALBUTEROL 0.5-3(2.5)MG/3ML NEB HHN SCH ×3 (00:39→15:11)
[2019-10-02] MEDS: NOREPINEPHRINE 32 MG in DEXT 5% WATER 218 ML IV PRN ×2 (00:57→15:40)
[2019-10-02] MEDS: CEFTRIAXONE 2 G in DEXTROSE 5% WATER 50 ML IV SCH ×2 (06:00→18:33)
[2019-10-02] MEDS: BLOOD SUGAR DIAGNOSTIC STRIP TEST SCH ×3 (06:13→18:34)
[2019-10-02] MEDS: PHENYTOIN SODIUM 100MG/2ML VIAL IV SCH ×2 (06:16→13:50)
[2019-10-02] MEDS: SUCRALFATE 1 G/10 ML UDC PO SCH ×3 (06:16→18:33)
[2019-10-02] MEDS: POLYVINYL ALCOHOL OPHTH DROPS 15ML BOTHEYE SCH ×3 (06:17→18:34)
[2019-10-02] MEDS: MIDODRINE HCL 5MG TABLET PO SCH ×3 (09:00→18:34)
[2019-10-02] MEDS: THIAMINE HCL 100MG TABLET NG SCH (09:00)
[2019-10-02] MEDS: NEOMY SULF/BACITRAC ZN/POLY OINT 28GM TOP SCH (09:00)
[2019-10-02] MEDS: FLUDROCORTISONE ACETATE 0.1MG TABLET PO SCH (09:00)
[2019-10-02] MEDS: AMOXICILLIN 500 MG CAPSULE NG SCH (09:00)
[2019-10-02] MEDS: CLARITHROMYCIN 500MG TABLET NG SCH (09:00)
[2019-10-02] MEDS: PANTOPRAZOLE SODIUM 40 MG/VIAL IV SCH (09:00)
[2019-10-02] MEDS: FOLIC ACID 1MG TABLET NG SCH (09:00)
[2019-10-02] MEDS ORDERED: OCTREOTIDE 1,000 MCG in SODIUM CHLORIDE 0.9% 98 ML IV SCH (11:00)
[2019-10-02] MEDS: LEVETIRACETAM 1,000 MG in SODIUM CHLORIDE 0.9% 100 ML IV SCH (13:44)
== END 2019-10-02 21:18 | disposition expired | DRG 4 ==
LOC: ER 18:47 → EDBEDREQ 20:40 → MICUSO 21:02 → EDBEDREQ 21:06 → EDBEDREQTM 21:06 → MICUNO 09-11 08:25
PROVIDERS: ADMIT Internal Medicine; ATTEND Internal Medicine
PROC: 00C40ZZ Extirpation of Matter from Intracranial Subdural Space, Open Approach (ICD-10-PCS; principal; 2019-09-08)
PROC: 00U207Z Supplement Dura Mater with Autologous Tissue Substitute, Open Approach (ICD-10-PCS; 2019-09-08)
PROC: 00C70ZZ Extirpation of Matter from Cerebral Hemisphere, Open Approach (ICD-10-PCS; 2019-09-08)
PROC: 30233M1 Transfusion of Nonautologous Plasma Cryoprecipitate into Peripheral Vein, Percutaneous Approach (ICD-10-PCS; 2019-09-08)
PROC: 5A1955Z Respiratory Ventilation, Greater than 96 Consecutive Hours (ICD-10-PCS; 2019-09-23)
PROC: 0B110F4 Bypass Trachea to Cutaneous with Tracheostomy Device, Open Approach (ICD-10-PCS; 2019-09-23)
PROC: 0GBJ0ZZ Excision of Thyroid Gland Isthmus, Open Approach (ICD-10-PCS; 2019-09-23)
PROC: 0BH18EZ Insertion of Endotracheal Airway into Trachea, Via Natural or Artificial Opening Endoscopic (ICD-10-PCS; 2019-09-23)
PROC: 30233N1 Transfusion of Nonautologous Red Blood Cells into Peripheral Vein, Percutaneous Approach (ICD-10-PCS; 2019-09-24)
DX: A41.9 Sepsis, unspecified organism (principal); N17.0 Acute kidney failure with tubular necrosis; I16.1 Hypertensive emergency; J69.0 Pneumonitis due to inhalation of food and vomit; E87.8 Other disorders of electrolyte and fluid balance, not elsewhere classified; G93.40 Encephalopathy, unspecified; R47.01 Aphasia; I61.5 Nontraumatic intracerebral hemorrhage, intraventricular; I61.1 Nontraumatic intracerebral hemorrhage in hemisphere, cortical; D57.1 Sickle-cell disease without crisis; D68.9 Coagulation defect, unspecified; D69.6 Thrombocytopenia, unspecified; E87.0 Hyperosmolality and hypernatremia; E87.5 Hyperkalemia; E87.6 Hypokalemia; F10.10 Alcohol abuse, uncomplicated; G40.909 Epilepsy, unspecified, not intractable, without status epilepticus; H57.04 Mydriasis; I13.0 Hypertensive heart and chronic kidney disease with heart failure and stage 1 through stage 4 chronic kidney disease, or unspecified chronic kidney disease; I27.20 Pulmonary hypertension, unspecified; I48.0 Paroxysmal atrial fibrillation; I50.32 Chronic diastolic (congestive) heart failure; K74.60 Unspecified cirrhosis of liver; K80.20 Calculus of gallbladder without cholecystitis without obstruction; N18.9 Chronic kidney disease, unspecified; R18.8 Other ascites; R65.21 Severe sepsis with septic shock; Z20.828 Contact with and (suspected) exposure to other viral communicable diseases; Z66 Do not resuscitate; J96.01 Acute respiratory failure with hypoxia; Z98.2 Presence of cerebrospinal fluid drainage device; Z99.11 Dependence on respirator [ventilator] status; Z79.899 Other long term (current) drug therapy
CPT/HCPCS: 31500; 36415; 36600; 49083; 71045; 74018; 76700; 76705; 76770; 76937; 80048; 80053; 80061; 80076; 80305; 80320; 81003; 82140; 82270; 82375; 82550; 82553; 82607; 82728; 82746; 82805; 82962; 83540; 83550; 83605; 83735; 83880; 84100; 84132; 84145; 84443; 84478; 84484; 85014; 85018; 85025; 86705; 86706; 86709; 86803; 86850; 86900; 86920; 86927; 87070; 87075; 87077; 87340; 87635; 88300; 88304; 93005; 93306; 94003; 94640; 96374; 99291; C1713; C1725; C1752; C1758; C1887; C9113; J0330; J0360; J0456; J0690; J0692; J0696; J1100; J1165; J1940; J1953; J2150; J2250; J2270; J2354; J2370; J2405; J2704; J2710; J2765; J3010; J3430; J3480; J3490; J7030; J7042; J7050; J7060; J7070; J7120; J7121; P9016; P9017; G0480